=== PATIENT | male | born 1955 | race Caucasian/White ===

== ENCOUNTER 2020-03-24 08:43 | Outpatient (REF) | payer OTHER, SELFPAY ==
--- NOTE | 2020-03-24 | US_ITS ---
EXAMINATION: US RETROPERITONEAL LIMITED (RENAL ONLY) CLINICAL INFORMATION: Renal stones. COMPARISON: Renal ultrasound 08/22/2019 and 02/12/2019. TECHNIQUE: Real-time imaging of the kidneys. FINDINGS: RIGHT KIDNEY: 10.9 x 6.0 x 6.4 cm (SAG x AP x TRV). The kidney is normal in size, contour, and echogenicity. Renal cortical thickness is normal. No hydronephrosis. There are 3 anechoic cysts in the midpole measuring 0.8 x 0.6 x 0.6 cm, 1.6 x 1.5 x 1.5 cm and 0.3 x 0.2 cm. LEFT KIDNEY: 11.4 x 6.2 x 6.0 cm (SAG x AP x TRV). The kidney is normal in size, contour, and echogenicity. Renal cortical thickness is normal. No calculi or focal parenchymal lesions. No hydronephrosis. US/US renal BI IMPRESSION: Multiple right mid pole renal cysts. There are no echogenic stones or hydronephrosis in either kidney.
== END 2020-03-24 08:44 | disposition home or self-care (01) ==
LOC: HO.US 08:43
PROVIDERS: PCP Internal Medicine; Visit Provider Urology
DX: N20.0 Calculus of kidney (principal)
CPT/HCPCS: 76775

== ENCOUNTER → 2020-06-11 08:38 | Outpatient (BNVA) | payer OTHER, SELFPAY | PROVIDERS: PCP Internal Medicine; Visit Provider Urology ==

== ENCOUNTER 2021-06-04 09:55 | Outpatient (REF) | payer OTHER, SELFPAY ==
--- NOTE | ~2021-06-04 | US_ITS ---
EXAMINATION: US RETROPERITONEAL LIMITED (RENAL ONLY) CLINICAL INFORMATION: Calculus of kidney. COMPARISON: Renal ultrasound 03/24/2020 and 08/22/2019. CT abdomen and pelvis 02/01/2018. TECHNIQUE: Real-time imaging of the kidneys. FINDINGS: RIGHT KIDNEY: 11.2 x 6.0 x 4.7 cm (SAG x AP x TRV). The kidney is normal in size, contour, and echogenicity. Renal cortical thickness is normal. There are 2 cysts measuring 1.7 x 1.5 x 1.4 cm and 0.8 cm in the in the mid to lower pole. No renal calculi or hydronephrosis. LEFT KIDNEY: 11.6 x 5.6 x 5.7 cm (SAG x AP x TRV). The kidney is normal in size, contour, and echogenicity. Renal cortical thickness is normal. There are 3 stones measuring 5 x 6 mm and 5 x 4 mm in the lower pole and 4 mm in the mid to lower pole. No focal parenchymal lesions or hydronephrosis. US/US renal BI IMPRESSION: Left renal stones. Right renal cysts.
== END 2021-06-04 09:56 | disposition home or self-care (01) ==
LOC: HO.US 09:55
PROVIDERS: PCP Internal Medicine; Visit Provider Urology
DX: N20.0 Calculus of kidney (principal); N28.1 Cyst of kidney, acquired
CPT/HCPCS: 76775

== ENCOUNTER → 2021-08-07 12:38 | Outpatient (BNVA) | payer OTHER, SELFPAY | PROVIDERS: PCP Internal Medicine; Visit Provider Urology | DX: Z13.89 Encounter for screening for other disorder (principal) ==

== ENCOUNTER 2021-11-16 10:44 | Day surgery (SDC) | payer OTHER, SELFPAY ==
[2021-11-10 13:10] VITALS: BMI 28.6
[2021-11-16] VITALS (7 sets, daily range): BP systolic 132–144; BP diastolic 66–86; PULSE 54–62; RESP 12–20; TEMP 36.6–36.9; O2SAT 96–98; BMI 28.6
--- NOTE | ~2021-11-16 | FL_ITS ---
EXAMINATION: XR FLUOROSCOPY WITH IMAGES CLINICAL INFORMATION: Left renal stones. COMPARISON: Ultrasound renal, bilateral. TECHNIQUE: Fluoroscopy performed by Dr. Evelio Lucas Fluoroscopy time: 25.0 seconds Cumulative Dose: 7.68 mGy Images: 2 FINDINGS: Initial image reveals contrast opacifying the left kidney pelvis and the proximal ureter with irregular-appearing mid ureter. The subsequent image reveals a internal ureteral stent with its proximal end in the kidney pelvis. The distal end is not in the [id number]. FL/FL guidance in OR IMPRESSION: Fluoroscopy guidance provided to referrer for retrograde ureteroscopy.
[2021-11-16] MEDS: Lactated Ringers 1,000 ML 50 ML IVCONT (11:32)
[2021-11-16] MEDS: Acetaminophen 325 MG TABLET 650 MG PO (11:34)
--- NOTE | 2021-11-16 11:40 | HO.ANESPROP2 ---
[facility] Active Problems Active Problems: All Active Problems (Updated 11/10/21 @ 13:07 by Jennifer Chavarria RN) Renal cyst (Acute) Renal stones (Acute) Past Medical History Medical History (Updated 11/10/21 @ 13:07 by Jennifer Chavarria RN) Asthma BPH loc w urin obs/LUTS HTN (hypertension) Renal stones Squamous cell carcinoma Family History Family History Father No problems noted. Mother Cancer Family history of problems with anesthesia: No Surgical History Surgical History (Updated 11/10/21 @ 13:07 by Jennifer Chavarria RN) H/O colonoscopy History of eye surgery Hx of cystoscopy History of Problems with Anesthesia: No Social History Social History (Updated 11/10/21 @ 13:10 by Jennifer Chavarria RN) Are you a primary career and transition teacher to a significant other at home: No Do you presently have visiting nurse or other home services: No Patient Tobacco Use Status: Former Tobacco user Quit Date: as teenager Tobacco use type: Cigarette Use of substances other than those prescribed or required for medical reasons: No Have you been hit, kicked, punched, or otherwise hurt by someone within the past year? If so, by whom?: No Are you DNR?: No Advance Directives: No Advance Directives Information Provided: Yes (brochure mailed) Advance Directives on File: No Recently lost weight without trying: No Eating poorly because of decreased appetite: No Nutrition Risks: No Nutritional Risk Poor oral hygiene: No (admits to one broken tooth upper left side) Meds Allergies Allergy/AdvReac Type Severity Reaction Status Date / Time No Known Allergies Allergy Verified 11/03/21 14:10 Active Medications: Current Medications Lactated Ringer's (Lr) 1,000 mls @ 50 mls/hr IVCONT .Q20H ALEKSEY Last Admin: 11/16/21 11:32 Dose: 50 mls/hr Home Medications Medication Instructions Recorded Confirmed Last Taken Type cetirizine 10 mg tablet 10 mg PO DAILY 06/11/20 11/10/21 Unknown History ciclopirox 0.77 % topical cream 1 appl topical DAILY 06/11/20 11/10/21 Unknown History propranolol 60 mg capsule,24 60 mg PO DAILY 03/11/16/21 11/16/21 History hr,extended release cholecalciferol (vitamin D3) 25 25 mcg PO DAILY 11/10/21 11/10/21 Unknown History mcg (1,000 unit) capsule (Vitamin D3) Exam Exam Date and Time: November 16, 2021 1140 Height,Weight and Vital Signs: Height 5 ft 5 in Weight 78.018 kg Last Vital Signs Temp 98.4 F 11/16/21 10:57 Pulse 54 11/16/21 10:57 Resp 16 11/16/21 10:57 BP 133/66 11/16/21 10:57 Pulse Ox 98 11/16/21 10:57 O2 Del Method 11/16/21 10:57 Airway Mallampati Class: II (Missing couple teeth nothing loose) TM Dist: >3cm Neck ROM: Full Heart: rrr Lungs: cta Assessment and Plan Assessment Anesthesia Assessment: Anesthesia Plan Discussed and Chart Reviewed Final Anesthetic Review Family History of Problems with Anesthesia: No History of Problems with Anesthesia: No NPO: Yes ASA Class: II Final Preanesthetic Review: No Changes in Pt Med Stat, Meds/Allgs Chart Reviewed and Consent Obtained/Reviewed Patient Risk: Intermediate Procedure Risk: Intermediate Anesthetic Plan Anesthetic Plan: GA Disposition: Standard PACU
--- NOTE | 2021-11-16 13:22 | MHC.SHP ---
Pre-Procedural Eval Section A Date of Service: 11/16/21 The patient is an INPATIENT: No Changes since office visit: No Cold of Flu in the past 2 weeks, No New Medical Problems, No Changes in Medication and No Patient answered all questions The History & Physical has been completed within 30 days and I have reviewed it.: Yes Section B Chief Complaint: kidney stone Details of Present Illness: left renal stones Allergies: Allergies Allergy/AdvReac Type Severity Reaction Status Date / Time No Known Allergies Allergy Verified 11/03/21 14:10 Review of Systems Sugical H&P ROS: Negative: Constitution, Cardiovascular, Respiratory, Neurological, Psychiatric, Hem-Onc, Allergic/Immunologic, Gastrointestinal, Genitourinary, Musculoskeletal, Integumentary, Endocrine and Eyes/Ears/Nose/Throat Exam Surgical H&P Exam: Normal: HEENT, Normal: Heart, Normal: Lungs, Normal: Extremities, Normal: Abdomen, Normal: Skin and Normal: Neurological Plan Diagnosis/Plan: Unchanged (left retograde, felxible ureteroscopy, laser lithotripsy, stent) I have reviewed the history and physical and performed a pertinent physical examination on my patient. No changes have occurred unless specified.
--- NOTE | 2021-11-16 13:47 | P.OP_ITS ---
Operative Note Operative Note Date of Service: 11/16/21 Narrative: PreOperative Diagnosis: left renal stones Post Operative Diagnosis: evidence of prior stone passage Procedure: - cystoscopy, left retrograde - left dilatation of ureteric orifice under fluoroscopy - left ureteroscopy - left stent placement Surgeon: Dr Evelio Lucas Anesthesia: General Indications for procedure: multiple 4 mm stones left kidney with symptoms on imaging Procedure: After informed consent was verified patient was brought to the operating placed in supine position. Anesthesia was administered per protocol. Patient was placed in modified dorsal lithotomy position and prepped and draped in a sterile fashion. Safety pause time-out and side of surgery confirmed. Antibiotics confirmed. 22 Uzbek cystoscope was inserted per urethra. Bladder was normal in its entirety. Both ureteric orifices were in normal position. The left ureteric orifice was cannulated and a retrograde examination was performed. no filling defects seen within ureter or clearly visible within the renal pelvis . A Sensor guidewire was placed up to the level of the renal pelvis under fluoroscopy. The rigid cystoscope was removed and the inner cannula of ureteric access sheath was used under fluoroscopy to dilate the ureteric orifice. The ureteric access sheath was placed and the inner cannula with access wire removed. The digital flexible ureteral scope was placed. the left renal pelvis and associated calyces were examined in detail. There was evidence of stone passage from multiple different calices. Small embed stone in the lower pole calyx. A decision was made not to use any lasering. As we examined the upper part of the ureter there was some splitting secondary to the dilatation. Decision was made to place stent. A 6 Uzbek by 22 cm double-J stent was placed into the renal pelvis and bladder under a combination of fluoroscopy and direct visualization. The bladder was emptied. The patient tolerated the procedure well and was extubated in the operating room, and transferred in stable condition to the [facility] area. Pathology: none Drains: as above
[2021-11-16] MEDS: Phenazopyridine HCL 100 MG TABLET PO (14:17)
== END 2021-11-16 15:34 | disposition home or self-care (01) ==
PROVIDERS: PCP Internal Medicine; Visit Provider Urology
PROC: (CPT 52351; principal; 2021-11-16 12:30)
DX: N20.0 Calculus of kidney (principal); Z87.442 Personal history of urinary calculi; J30.2 Other seasonal allergic rhinitis; N40.0 Benign prostatic hyperplasia without lower urinary tract symptoms; C80.1 Malignant (primary) neoplasm, unspecified; Z79.899 Other long term (current) drug therapy; Z87.891 Personal history of nicotine dependence; Z98.890 Other specified postprocedural states
CPT/HCPCS: 52351; 52332; C1758; C1769; C1894; C2617; J1100; J1956; J2250; J2405; J3010; Q9965

== ENCOUNTER → 2021-11-24 13:01 | Outpatient (BNVA) | payer OTHER, SELFPAY | PROVIDERS: Visit Provider Urology | DX: N20.0 Calculus of kidney (principal) | CPT/HCPCS: 52310 ==

== ENCOUNTER 2022-05-05 08:55 | Outpatient (REF) | payer OTHER, MEDICARE, SELFPAY ==
--- NOTE | ~2022-05-05 | US_ITS ---
EXAMINATION: US RETROPERITONEAL LIMITED (RENAL ONLY) CLINICAL INFORMATION: Calculus of kidney. COMPARISON: Ultrasound retroperitoneal limited (renal only) 06/04/2021 and 03/24/2020. CT abdomen and pelvis without contrast 02/01/2018. TECHNIQUE: Real-time imaging of the kidneys. FINDINGS: RIGHT KIDNEY: 10.9 x 6.3 x 5.5 cm (SAG x AP x TRV). The kidney is normal in size, contour, and echogenicity. Renal cortical thickness is normal. No renal calculi or hydronephrosis. Two midpole benign Bosniak class I simple cysts are present measuring 1.7 and 0.9 cm. No solid renal masses. LEFT KIDNEY: 11.3 x 6.3 x 5.1 cm (SAG x AP x TRV). The kidney is normal in size, contour, and echogenicity. Renal cortical thickness is normal. A single tiny lower pole echogenic focus present which may represent a small residual calculus. The 3 stones seen previously on the 08/04/2021 study measuring 4 to 6 mm in size are not present. No focal parenchymal lesions or hydronephrosis. US/US renal BI IMPRESSION: 1. Right-sided benign Bosniak class I renal cysts need no further imaging or follow-up. 2. Tiny echogenic focus lower pole left kidney which may represent a small nonobstructing calculus.
== END 2022-05-05 08:56 | disposition home or self-care (01) ==
LOC: HO.US 08:55
PROVIDERS: PCP Internal Medicine; Visit Provider Urology
DX: N20.0 Calculus of kidney (principal)
CPT/HCPCS: 76775

== ENCOUNTER → 2022-06-18 09:32 | Outpatient (BNVA) | payer OTHER, MEDICARE, SELFPAY | PROVIDERS: PCP Internal Medicine; Visit Provider Urology | DX: Z13.89 Encounter for screening for other disorder (principal) ==

== ENCOUNTER 2023-06-08 13:00 | Outpatient (REF) | payer OTHER, SELFPAY ==
--- NOTE | ~2023-06-08 | US_ITS ---
EXAMINATION: US RETROPERITONEAL LIMITED (RENAL ONLY) CLINICAL INFORMATION: Calculus of kidney. COMPARISON: Renal ultrasound 05/05/2022 and 06/04/2021. CT abdomen and pelvis 02/01/2018. TECHNIQUE: Real-time imaging of the kidneys. FINDINGS: RIGHT KIDNEY: 10.1 x 5.6 x 4.0 cm (SAG x AP x TRV). The kidney is normal in size, contour, and echogenicity. Renal cortical thickness is normal. No renal calculi or hydronephrosis. A few small simple appearing cysts of the right kidney are noted portion of follow-up imaging is usually warranted, largest measuring 1.4 cm. LEFT KIDNEY: 11.2 x 5.7 x 5.1 cm (SAG x AP x TRV). The kidney is normal in size, contour, and echogenicity. Renal cortical thickness is normal. 3 mm nonobstructing lower pole calculus. No hydronephrosis. US/US renal BI IMPRESSION: 3 mm nonobstructing left renal calculus. No right-sided renal calculi. No hydronephrosis of either kidney.
== END 2023-06-08 13:01 | disposition home or self-care (01) ==
LOC: HO.US 13:00
PROVIDERS: PCP Internal Medicine; Visit Provider Urology
DX: N20.0 Calculus of kidney (principal)
CPT/HCPCS: 76775

== ENCOUNTER 2023-06-21 10:50 | Outpatient (AMB) | payer OTHER, SELFPAY ==
--- NOTE | 2023-06-21 10:53 | MHC.OFFVIS ---
Intake Intake Visit Reasons: 1Y US(Set) Intake Note: Patient is Present for Follow Up Urology Medication:Vitamin B6 Antibiotic Allergies:None Blood Thinners:None Pharmacy: [facility] Allergies No Known Allergies Allergy (Verified 06/21/23 10:55) HPI HPI Comments History of Present Illness Details George is a very pleasant male. He is a patient of . He is seen for the following urologic conditions - nephrolithiasis Discussed ultrasound results Question of small stone Will stop allopurinol Continue vitamin B6 50 mg Continues on nicotinamide to reduce skin cancer risk PSA 09/07 0.4 Nephrolithiasis Discussed imaging results No stones currently Current therapy allopurinol in vitamin B6 Prior procedures - 7 mm 2015 intervention - 11/09 left ureteroscopy - moth-eaten stone recurrent Imaging - 10/07 - renal ultrasound. Question of 3 mm right stone, 2 mm left stone. - 05/11 RENAL ULTRASOUND. Right-sided renal cyst. - 08/09 renal ultrasound right-sided cyst 2.4 cm, 3 x 5 mm left-sided stones - 05/13 renal ultrasound right-sided renal cyst, no evidence of stones - 07/12 renal ultrasound right-sided cyst stable, possible 2 mm left stone Plan therapy. Continue vitamin B6 and allopurinol PFSH Medical History Asthma Squamous cell carcinoma HTN (hypertension) BPH loc w urin obs/LUTS Renal stones Surgical History H/O colonoscopy Hx of cystoscopy History of eye surgery Family History Father No problems noted. Mother Cancer Social History Are you a primary healthcare economics consultant to a significant other at home: No Do you presently have visiting nurse or other home services: No Patient Tobacco Use Status: Former Tobacco user Quit Date: as teenager Tobacco use type: Cigarette Review of Systems Const Denies chills and Denies fever(s) Card Reports no additional complaints and Denies syncope Resp Denies cough GI Denies abdominal pain and Denies heartburn Reports as per HPI and Denies change in libido Neuro Denies syncope Psych Denies change in libido Endo Denies change in libido Physical Exam Const General: cooperative, healthy appearing, comfortable and no acute distress Orientation/consciousness: patient oriented x3 HEENT Face and sinus: Yes normal facial exam Mouth: moist mucous membranes Neck Neck: Yes normal visual inspection, Yes full ROM and Yes trachea midline Chest Chest palpation & inspection: normal inspection of the chest Resp Effort & Inspection: normal respiratory effort, able to speak in complete sentences and no respiratory distress GI Inspection: Yes normal to inspection Back/Spine/Pelvis Cervical Spine: normal cervical lordosis Thoracic/Lumbar Spine: thoracic and lumbar spine normal to inspection Skin General skin exam: no rashes or lesions noted Neuro General: patient oriented x3, gait normal, tone normal and moves all extremities Extrem General: Yes normal to inspection and Yes capillary refill normal Assessment & Plan Assessment & Plan (1) Renal stones: Code(s): N20.0 - Calculus of kidney Plan 12 month follow-up renal ultrasound Orders: Orders US renal BI 12 Months N20.0 - Calculus of kidney Medications: Discontinued allopurinol Discontinued Reason: Patient Completed Course 100 mg PO DAILY 90 days 90 tabs 3RF N20.0 - Calculus of kidney Patient Instructions: Imaging studies, laboratory and physical exam results were discussed and reviewed in detail. No major barriers to patient understanding were identified. An opportunity to ask questions regarding the treatment plan was provided. All questions were answered. The patient expressed understanding and agreement with the above treatment plan. The patient is aware they should contact our office by phone for worsening of their current condition or the appearance of new urologic symptoms. Compliance is encouraged with any medications and followup testing that is ordered. It is a privilege to participate in the urologic care of your patient. If you have any questions or concerns regarding treatment for the above conditions, or other urologic issues, please do not hesitate to contact me. The office telephone contact is [phone]. This note is constructed using voice recognition software. While every effort has been made to ensure accuracy zipper setter errors may have been included. Yours sincerely, Dr Evelio Lucas MD, [facility] - Urology Providers of Expert, Compassionate Care for the Genitourinary System Coding Level of Care Code Est Pt Level 4 (78977) Diagnoses Renal stones N20.0
== END 2023-06-21 11:12 | disposition home or self-care (01) ==
PROVIDERS: PCP Internal Medicine; Visit Provider Urology
DX: N20.0 Calculus of kidney (principal)
CPT/HCPCS: 99214

== ENCOUNTER → 2023-06-21 10:50 | Outpatient (BNVA) | payer MEDICARE, SELFPAY | PROVIDERS: Visit Provider Urology ==

== ENCOUNTER 2024-06-08 08:01 | Outpatient (REF) | payer OTHER, MEDICARE, SELFPAY ==
--- NOTE | ~2024-06-08 | US_ITS ---
EXAMINATION: US KIDNEY BILATERAL HISTORY: N20.0 - Calculus of kidney TECHNIQUE: Real-time grayscale ultrasound imaging of the kidneys was performed and images were reviewed. COMPARISON: Comparison is made with the prior examination dated 06/08/2023. FINDINGS: Right kidney: The right kidney measures 10.5 x 5.7 x 5.6 cm. Renal parenchymal echotexture and thickness are normal. There is a 1.5 cm cyst in the interpolar region and a 10 mm cyst at the lower pole. There is no hydronephrosis or renal calculi. Left Kidney: The left kidney measures 11.1 x 6.1 x 4.8 cm. Renal parenchymal echotexture and thickness are normal. There are no masses. There is no hydronephrosis or renal calculi. US/US renal BI IMPRESSION: Right renal cysts as described. Otherwise unremarkable renal ultrasound. Electronically signed by: Souleymane Valladares MD 06/08/2024 08:56 AM EDT
--- OUTSIDE RECORDS SUMMARY | 2024-06-08 08:03 | XMS_ITS | Clinical Summary ---
Author Organization [employer] Address [address] [facility] [address] [place] [address] Care Team Providers Care Hackler Doll Wigs Name Role Phone Mariana Morgan MD Primary Care Provider Allergies No known active allergies Medications cetirizine (ZyrTEC) 10 MG tablet TAKE ONE TABLET DAILY 30 tablet 5 3 Active cetirizine (ZyrTEC) 10 MG tablet TAKE ONE TABLET DAILY 3 Active propranolol LA (Inderal LA) 60 MG 24 hr capsuleIndication s:Primary hypertension Take 1 capsule (60 mg) by mouth in the morning. Do not crush, chew, or split. 90 capsule 3 3 Active propranolol LA (Inderal LA) 60 MG 24 hr capsuleIndication s:Hypertension, unspecified type Take 1 capsule (60 mg) by mouth Once per day. 90 capsule 1 4 Active Active Problems Problem Noted Date Diagnosed Date Hypertension 03/17/2024 Encounters Date Type Department Care Team Description 03/17/2024 9:00 AM EST Office Visit [facility] [address] [place] [address] NameNavneet MD Hypertension, unspecified type (Primary Dx) 03/17/2024 Travel 03/12/2024 Refill [facility] [address] [place] [address] Mariana Morgan MD Primary hypertension from Last 3 Months Social History Tobacco Use Types Packs/Day Years Used Date Smoking Tobacco: Never Tobacco Cessation:Counseling Given: Not Answered Alcohol Use Standard Drinks/Week Comments Yes 2 (1 standard drink = 0.6 oz pur e alcohol) Sex and Gender Information Value Date Recorded Sex Assigned at Male 01/18/2022 10:33 AM EDT Legal Sex Male 10:33 AM EDT Gender Identity Male 01/18/2022 10:33 AM EDT Sexual Orientation Straight 01/18/2022 10 :33 AM EDT Last Filed Vital Signs Vital Sign Reading Time Taken Comments Blood Pressure 120/72 03/17/2024 9:09 AM EST Pulse 72 03/17/2024 9:09 AM EST Temperature 36.3 ??C (97.4 ??F) 03/17/2024 9:09 AM ES T Respiratory Rate 16 03/17/2024 9:09 AM EST Oxygen Saturation 99% 03/17/2024 9:09 AM EST Inhaled Oxygen Concentration - - Weight 78.3 kg (172 lb 9.6 oz) 03/17/2024 9:09 A M EST Height 169 cm (5' 6.54 ) 03/17/2024 9:09 AM EST Body Mass Index 27.41 03/17/2024 9:09 AM EST Plan of Treatment Health Maintenance Due Date Last Done Comments CT Colonography 1956 Colonoscopy 1956 Colorectal Cancer Screening 1956 Depression Screening 1956 FIT DNA/Cologuard 1956 FIT 1956 FOBT 1956 Lipid Panel 1956 SDOH Screening 1956 Sigmoidoscopy 1956 Alcohol/Substance Use Screening 1968 Hepatitis C Screening 1974 Pneumococcal Vaccine: 50+ Years (1 of 1 - PCV) 2006 Zoster Vaccines (1 of 2) 2006 DTaP/Tdap/Td Vaccines (2 - Td or Tdap) 10/04/2017 10/05/2007 COVID-19 Vaccine ( season) 2023 09/04/2021, 03/06/2021, 06/25/2020, Additional history exists Influenza Vaccine (#1) 2023 Tobacco Screening 03/17/2025 03/17/2024 RSV Patients and Patients Aged 60 years or older (1 - 1-dose 75+ series) 2031 HIB Vaccines Aged Out No longer eligi ble based on patient's age to complete this topic HPV Vaccines Aged Out No longer eligi ble based on patient's age to complete this topic Hepatitis A Vaccines Aged Out No long er eligible based on patient's age to complete this topic Hepatitis B Vaccines Aged Out No long er eligible based on patient's age to complete this topic IPV Vaccines Aged Out No longer eligi ble based on patient's age to complete this topic Meningococcal Vaccine Aged Out No daly lorraine eligible based on patient's age to complete this topic RSV under 20 months Aged Out No longe r eligible based on patient's age to complete this topic Rotavirus Vaccines Aged Out No longer eligible based on patient's age to complete this topic [facility] [id number] [employer] * Guarantor: George White Account Type Relation to Patient Date of Phone Billing Address Personal/Family Self [facility] # [id number] * Guarantor: George White Account Type Relation to Patient Date of Phone Billing Address Personal/Family Self [place] [place] [id number] * Guarantor: George White Account Type Relation to Patient Date of Phone Billing Address Personal/Family Self [facility] [place] # 1 NA[address] [id number] Care Teams Hackler Doll Wigs Relationship Specialty Start Date End Date Mariana Morgan MD [address] [place] [address] NAINA Michele PCP - General Internal Medicine 03/15/24
--- OUTSIDE RECORDS SUMMARY | 2024-06-08 08:03 | XMS_ITS | Encounter Summary ---
Author Organization [employer] Address [address] [facility] [address] [address] Care Team Providers Care Grocery Specialist Name Role Phone Mariana Morgan MD Primary Care Provider [phone] Mariana Morgan MD Primary Care Provider [phone] Encounter Details Date Type Department Care Team (Late st Contact Info) Description 11/24/2022 Orders Only [facility] [address] [facility] [place], [place] [phone] Love Vivas LPN Social History Tobacco Use Types Packs/Day Years Used Date Smoking Tobacco: Never Assessed Sex and Gender Information Value Date Recorded Sex Assigned at Male 01/18/2022 10:33 AM EDT Legal Sex Male 10:33 AM EDT Gender Identity Male 01/18/2022 10:33 AM EDT Sexual Orientation Straight 01/18/2022 10 :33 AM EDT documented as of this encounter Plan of Treatment Not on file documented as of this encounter Visit Diagnoses Not on filedocumented in this encounter Care Teams Grocery Specialist Relationship Specialty Start Date End Date Mariana Morgan MD [address] [place] [address] PCP - General Internal Medicine 08/08/17 04/10/23 Mariana Morgan MD [address] [place] [address] PCP - General Internal Medicine 03/15/24 documented as of this encounter
--- OUTSIDE RECORDS SUMMARY | 2024-06-08 08:03 | XMS_ITS | Encounter Summary ---
Author Organization [employer] Address [address] [place] [address] [address] [place] [address] Care Team Providers Care Transformer Assembler Name Role Phone Mariana Morgan MD Primary Care Provider Reason for Visit * Reason Comments Med Refill Encounter Details Date Type Department Care Team ([facility] st Contact Info) Description 11/28/2023 Refill [facility] [address] [place] [address] Mariana Morgan MD [address] [place] [address] Social History Tobacco Use Types Packs/Day Years [...] on filedocumented in this encounter Care Teams Transformer Assembler Relationship Specialty Start Date End Date Mariana Morgan MD [address] [place] [address] PCP - General Internal Medicine 03/15/24 documented as of this encounter
--- OUTSIDE RECORDS SUMMARY | 2024-06-08 08:03 | XMS_ITS | Encounter Summary ---
Author Organization [employer] [facility] Address [address] [facility] [address], [place] [address] Care Team Providers Care Industrial Maintenance Electrician Name Role Phone Mariana Morgan MD Primary Care Provider [phone] Mariana Morgan MD Primary Care Provider [phone] Reason for Visit * Reason Comments Med Refill Encounter Details Date Type Department Care Team ([facility] st Contact Info) Description 09/20/2022 Refill [facility] [address] [place], [place] [phone] Whitney Quintero MD [address] [place], [place] [phone] Primary hypertension Social History Tobacco Use Types Packs/Day Years [...] documented as of this encounter Visit Diagnoses Diagnosis Primary hypertension Unspecified essential hypertension documented in this encounter Care Teams Industrial Maintenance Electrician Relationship Specialty Start Date End Date Mariana Morgan MD [address] [place] [address] PCP - General Internal Medicine 08/08/17 04/10/23 Mariana Morgan MD [address], [place] [phone] PCP - General Internal Medicine 03/15/24 documented as of this encounter
== END 2024-06-08 08:02 | disposition home or self-care (01) ==
LOC: HO.US 08:01
PROVIDERS: PCP Internal Medicine; Visit Provider Urology
DX: N20.0 Calculus of kidney (principal)
CPT/HCPCS: 76775

== ENCOUNTER → 2024-06-08 08:03 | Outpatient (BNV) | payer OTHER, MEDICARE, SELFPAY | PROVIDERS: PCP Internal Medicine; Visit Provider Radiology Diagnostic Radiology | DX: N20.0 Calculus of kidney (principal); N28.1 Cyst of kidney, acquired | CPT/HCPCS: 76775 ==

== ENCOUNTER 2024-06-21 08:36 | Outpatient (AMB) | payer OTHER, SELFPAY ==
--- NOTE | 2024-06-21 08:39 | MHC.OFFVIS ---
Intake Visit Reasons: 1y/US Intake Note: Patient is Present for 1Y Follow Up/US Urology Medication:Vitamin B6 Antibiotic Allergies:None Blood Thinners:None Pocketed Spring Machine Operator Required: No Allergies No Known Allergies Allergy (Verified 06/21/24 08:39) HPI Comments Details: George is a very pleasant male. He is a patient of . He is seen for the following urologic conditions - nephrolithiasis No stone seen on ultrasound Continue vitamin B6 50 mg Continues on nicotinamide to reduce skin cancer risk PSA 09/07 0.4 Follow with PCP Nephrolithiasis Discussed imaging results No stones currently Current therapy allopurinol in vitamin B6 Prior procedures - 7 mm 2015 intervention - 11/09 left ureteroscopy - moth-eaten stone recurrent Imaging - 10/07 - renal ultrasound. Question of 3 mm right stone, 2 mm left stone. - 05/11 RENAL ULTRASOUND. Right-sided renal cyst. - 08/09 renal ultrasound right-sided cyst 2.4 cm, 3 x 5 mm left-sided stones - 05/13 renal ultrasound right-sided renal cyst, no evidence of stones - 07/12 renal ultrasound right-sided cyst stable, possible 2 mm left stone - 07/13 renal ultrasound no stone seen Plan therapy. Continue vitamin B6 and allopurinol PFSH Medical History Asthma Squamous cell carcinoma HTN (hypertension) BPH loc w urin obs/LUTS Renal stones Surgical History H/O colonoscopy Hx of cystoscopy History of eye surgery Family History Father No problems noted. Mother Cancer Social History Are you a primary aged or disabled care worker to a significant other at home: No Do you presently have visiting nurse or other home services: No Patient Tobacco Use Status: Former Tobacco user Tobacco use type: Cigarette Review of Systems Const Denies chills and Denies fever(s) Card Reports no additional complaints and Denies syncope Resp Denies cough GI Denies abdominal pain and Denies heartburn Reports as per HPI and Denies change in libido Neuro Denies syncope Psych Denies change in libido Endo Denies change in libido Physical Exam Const General: cooperative, healthy appearing, comfortable and no acute distress Orientation/consciousness: patient oriented x3 HEENT Face and sinus: Yes normal facial exam Mouth: moist mucous membranes Neck Neck: Yes normal visual inspection, Yes full ROM and Yes trachea midline Chest Chest palpation & inspection: normal inspection of the chest Resp Effort & Inspection: normal respiratory effort, able to speak in complete sentences and no respiratory distress GI Inspection: Yes normal to inspection Back/Spine/Pelvis Cervical Spine: normal cervical lordosis Thoracic/Lumbar Spine: thoracic and lumbar spine normal to inspection Skin General skin exam: no rashes or lesions noted Neuro General: patient oriented x3, gait normal, tone normal and moves all extremities Extrem General: Yes normal to inspection and Yes capillary refill normal Assessment & Plan Assessment & Plan (1) Renal stones: Code(s): N20.0 - Calculus of kidney Category: Medical Plan P.r.n. follow-up Patient Instructions: This note is constructed using voice recognition software. While every effort has been made to ensure accuracy smokehouse worker errors may have been included. Imaging studies, laboratory and physical exam results were discussed and reviewed in detail. No major barriers to patient understanding were identified. An opportunity to ask questions regarding the treatment plan was provided. All questions were answered. The patient expressed understanding and agreement with the above treatment plan. The patient is aware they should contact our office by phone for worsening of their current condition or the appearance of new urologic symptoms. Compliance is encouraged with any medications and followup testing that is ordered. It is a privilege to participate in the urologic care of your patient. If you have any questions or concerns regarding treatment for the above conditions, or other urologic issues, please do not hesitate to contact me. The office telephone contact is [phone]. Sincerely, Dr Evelio Lucas MD, [facility] - Urology Compassionate Specialist Care for the Genitourinary System Coding Level of Care Code Est Pt Level 4 (69946) Diagnoses Renal stones N20.0
--- OUTSIDE RECORDS SUMMARY | 2024-06-21 08:46 | XMS_ITS | Encounter Summary ---
Author Organization [employer] Address [address] [facility] [address] [place] [address] Care Team Providers Care Ship'S Carpenter Name Role Phone Mariana Morgan MD Primary Care Provider [phone] Mariana Morgan MD Primary Care Provider [phone] Encounter Details Date Type Department Care Team (Late st Contact Info) Description 11/24/2022 Orders Only [facility] MED & PEDS [address] [facility], [place] [phone] Love Vivas LPN Social History Tobacco Use [...] on filedocumented in this encounter Care Teams Ship'S Carpenter Relationship Specialty Start Date End Date Mariana Morgan MD [address] [facility] [place] [address] PCP - General Internal Medicine 08/08/17 04/10/23 Mariana Morgan MD [address] [place] [address] PCP - General Internal Medicine 03/15/24 documented as of this encounter
--- OUTSIDE RECORDS SUMMARY | 2024-06-21 08:46 | XMS_ITS | Encounter Summary ---
Author Organization [employer] Address [address] [place] [address] [address] [place] [address] Care Team Providers Care Grocery Store Courtesy Clerk Name Role Phone Mariana Morgan MD Primary Care Provider Reason for Visit * Reason Comments Med Refill Encounter Details Date Type Department Care Team ([facility] st Contact Info) Description 11/28/2023 Refill [facility] CHC MED & PEDS [address] [place] [address] Mariana Morgan MD [address] [place] [address] Social History Tobacco Use Types Packs/Day Years [...] filedocumented in this encounter Care Teams Grocery Store Courtesy Clerk Relationship Specialty Start Date End Date Mariana Morgan MD [address] [place] [address] PCP - General Internal Medicine 03/15/24 documented as of this encounter
--- OUTSIDE RECORDS SUMMARY | 2024-06-21 08:46 | XMS_ITS | Clinical Summary ---
Author Organization [employer] Address [address] [facility] [address] [place] [address] Care Team Providers Care Twister Operator Name Role Phone Mariana Morgan MD Primary [...] Encounters Date Type Department Care Team Description 06/08/2024 Orders Only [facility] External Provider, [facility] from Last 3 Months Social History Tobacco [...] on patient's age to complete this topic Procedures Procedure Name Priority Date/Time Associated Diagnosis Comments US RENAL BI Routine 06/08/2024 8:09 AM EDT from Last 3 Months Results * US RENAL BI (06/08/2024 8:09 AM EDT) Anatomical Region Laterality Modality Abdomen Ultrasound 06/08/2024 8:09 AM EDT Narrative 06/08/2024 8:59 AM EDT ? [facility] ?[address] ?[place] [address] ? Ultrasound Report ? Signed ? Patient: White,Samaritan ?MR#: M ?? [id number] ? : 1955 ?Acct:[id number] ? Age/Sex: 69 / M ?ADM Date: 06/08/24 ? Loc: HO.US ? Attending Dr: Evelio Lucas MD ? Ordering Physician: Evelio Lucas MD ?? Date of Service: 06/08/24 ?? Procedure(s): US renal BI ?? Accession Number(s): [id number] ? cc: Mariana Morgan MD; Evelio Lucas MD ? EXAMINATION: ??US KIDNEY BILATERAL ? HISTORY: N20.0 - Calculus of kidney ? TECHNIQUE: Real-time grayscale ultrasound imaging of the kidneys was ?? performed and images were reviewed. ? COMPARISON: Comparison is made with the prior examination dated ?? 06/08/2023. ? FINDINGS: ? Right kidney: ??The right kidney measures 10.5 x 5.7 x 5.6 cm. ??Renal ?? parenchymal echotexture and thickness are normal. ??There is a 1.5 cm ?? cyst in the interpolar region and a 10 mm cyst at the lower pole. ? There is no hydronephrosis or renal calculi. ? Left Kidney: ??The left kidney measures 11.1 x 6.1 x 4.8 cm. ??Renal ?? parenchymal echotexture and thickness are normal. ??There are no masses. ?? There is no hydronephrosis or renal calculi. ? US/US renal BI ?? IMPRESSION: ? Right renal cysts as described. Otherwise unremarkable renal ultrasound. ? Electronically signed by: ??Souleymane Valladares MD ??06/08/2024 08:56 AM EDT ?? RP ? Dictated By: ?Souleymane Valladares MD ? Signed By: ?<Electronically signed by Souleymane Valladares MD in OV> ?06/08/24 0856 ? DD/ 0809 ? TD/TT: 06/08/24 0829 ? Contact Representative: ? Procedure Note Donotireneter, Image - 06/08/2024 [place] [id number] Ultrasound Report Signed Patient: Sahara White#: M [id number] : 1955cct:[id number] Age/Sex: 69 / MADM Date: 06/08/24 Loc: HO.US Attending Dr: Evelio Lucas MD Ordering Physician: Evelio Lucas MD Date of Service: 06/08/24 Procedure(s): US renal BI Accession Number(s): [id number] cc: Mariana Morgan MD; Evelio Lucas MD EXAMINATION: US KIDNEY BILATERAL HISTORY: N20.0 - Calculus of kidney TECHNIQUE: Real-time grayscale ultrasound imaging of the kidneys was performed and images were reviewed. COMPARISON: Comparison is made with the prior examination dated 06/08/2023. FINDINGS: Right kidney: The right kidney measures 10.5 x 5.7 x 5.6 cm. Renal parenchymal echotexture and thickness are normal. There is a 1.5 cm cyst in the interpolar region and a 10 mm cyst at the lower pole. There is no hydronephrosis or renal calculi. Left Kidney: The left kidney measures 11.1 x 6.1 x 4.8 cm. Renal parenchymal echotexture and thickness are normal. There are no masses. There is no hydronephrosis or renal calculi. US/US renal BI IMPRESSION: Right renal cysts as described. Otherwise unremarkable renal ultrasound. Electronically signed by: Souleymane Valladares MD 06/08/2024 08:56 AM EDT RP Dictated By: Souleymane Valladares MD Signed By: <Electronically signed by Souleymane Valladares MD in OV> 06/08/24 0856 DD/ 0809 TD/TT: 06/08/24 0829 Contact Representative: us [facility] External Provider IMG US PROCEDURES Edited Result - Final from Last 3 Months [facility] [address] [place] [id number] [employer] * Guarantor: George White Account Type Relation to Patient Date of Phone Billing Address Personal/Family [facility] [address] [place] [id number] * Guarantor: George White Account Type Relation to Patient Date of Phone Billing Address Personal/Family Self [facility] [address] [place] [id number] * Guarantor: George White Account Type Relation to Patient Date of Phone Billing Address Personal[facility] [id number] Care Teams Twister Operator Relationship Specialty Start Date End Date Mariana Morgan MD [address] [place] [address] [place] PCP - General Internal Medicine 03/15/24
--- OUTSIDE RECORDS SUMMARY | 2024-06-21 08:46 | XMS_ITS | Encounter Summary ---
Author Organization [employer] [facility] Address [address] [facility] [address], [place] [address] Care Team Providers Care Informatics Physician Liaison Name Role Phone Mariana Morgan MD Primary Care Provider [phone]- [phone] Mariana Morgan MD Primary Care Provider [phone]- [phone] Reason for Visit * Reason Comments Med Refill Encounter Details Date Type Department Care Team ([facility] st Contact Info) Description 09/20/2022 Refill [facility] CHC MED & PEDS [address] [place], [place] [phone] Whitney Quintero MD [address] [place], [place] [phone] Primary hypertension Social History Tobacco Use Types [...] hypertension documented in this encounter Care Teams Informatics Physician Liaison Relationship Specialty Start Date End Date Mariana Morgan MD [address] [place] [address] PCP - General Internal Medicine 08/08/17 04/10/23 Mariana Morgan MD [address] [place], [place] [phone] PCP - General Internal Medicine 03/15/24 documented as of this encounter
== END 2024-06-21 09:22 | disposition home or self-care (01) ==
LOC: HO.HUSH 08:36
PROVIDERS: PCP Internal Medicine; Visit Provider Urology
DX: N20.0 Calculus of kidney (principal)
CPT/HCPCS: 99214

== ENCOUNTER 2024-09-14 14:36 | Outpatient (REF) | payer OTHER, SELFPAY ==
--- OUTSIDE RECORDS SUMMARY | 2024-09-14 14:57 | XMS_ITS | Encounter Summary ---
Author Organization [employer] [facility] Address [address] [place] [address] [address] [place] [address] Care Team Providers Care Behavioral Health Associate Name Role Phone Mariana Morgan MD Primary Care Provider [phone] Mariana Morgan MD Primary Care Provider [phone] Encounter Details Date Type Department Care Team (Late st Contact Info) Description 11/24/2022 Orders Only [facility] MED & PEDS [address] [place] [address] Love Vivas LPN Social History Tobacco Use Types Packs/Day Years Used Date Smoking Tobacco: Never Assessed Sex and Gender Information Value Date Recorded Sex Assigned at Male 01/18/2022 10:33 AM EDT Legal Sex Male 10:33 AM EDT Gender Identity Male 01/18/2022 10:33 AM EDT Sexual Orientation Straight 01/18/2022 10 :33 AM EDT documented as of this encounter Plan of Treatment Upcoming Encounters Date Type Department Care Team (Late st Contact Info) Description 09/28/2024 10:00 AM EDT Clinical Support [facility] MED & PEDS [address] [place] [address] 11/27/2024 4:00 PM EDT Office Visit [facility] MED & PEDS [address] [place] [address] Mariana Morgan MD [address] [place] [address] documented as of this encounter Visit Diagnoses Not on filedocumented in this encounter Care Teams Behavioral Health Associate Relationship Specialty Start Date End Date Mariana Morgan MD [address] [place] [address] PCP - General Internal Medicine 08/08/17 04/10/23 Mariana Morgan MD [address] [place] [address] [place] [id number] PCP - General Internal Medicine 03/15/24 documented as of this encounter
[2024-09-15 10:59] LABS: Adenovirus PCR Not Detected (Not Detect.); Bordetella parapertussis PCR Not Detected (Not Detect.); Bordetella pertussis PCR Not Detected (Not Detect.); Chlamydia pneumoniae PCR Not Detected (Not Detect.); Coronavirus 229E PCR Not Detected (Not Detect.); Coronavirus HKU1 PCR Not Detected (Not Detect.); Coronavirus NL63 PCR Not Detected (Not Detect.); Coronavirus OC43 PCR Not Detected (Not Detect.); Human metapneumovirus PCR Not Detected (Not Detect.); Influenza A PCR Not Detected (Not Detect.); Influenza B PCR Not Detected (Not Detect.); Mycoplasma pneumoniae PCR Not Detected (Not Detect.); Parainfluenza 1 PCR Not Detected (Not Detect.); Parainfluenza 2 PCR Not Detected (Not Detect.); Parainfluenza 3 PCR Not Detected (Not Detect.); Parainfluenza 4 PCR Not Detected (Not Detect.); RSV PCR Not Detected (Not Detect.); Rhino/Enterovirus PCR Not Detected (Not Detect.)
[2024-09-15 11:13] LABS: Influenza A H1 PCR Not Detected (Not Detect.); Influenza A H1-2009 PCR Not Detected (Not Detect.); Influenza A H3 PCR Not Detected (Not Detect.); SARS-CoV-2 PCR Not Detected (Not Detect.)
== END 2024-09-14 14:37 | disposition home or self-care (01) ==
LOC: HO.CHCLNP 14:36
PROVIDERS: Visit Provider Family Medicine
DX: J32.9 Chronic sinusitis, unspecified (principal); R06.2 Wheezing
CPT/HCPCS: 87070; 87633

== ENCOUNTER 2024-11-28 08:55 | Outpatient (REF) | payer OTHER, MEDICARE, SELFPAY ==
--- OUTSIDE RECORDS SUMMARY | 2024-11-27 16:00 | XMS_ITS | Encounter Summary ---
Author Organization [employer] Address [address] [facility] [address] [place] [address] Care Team Providers Care Dental Nurse Name Role Phone Mariana Morgan MD Primary Care Provider Encounter Details Date Type Department Care Team ([facility] st Contact Info) Description 11/27/2024 4:00 PM EDT Office Visit [facility] [address] [place] [address] Mariana Morgan MD [address], [place] [phone] Primary hypertension (Primary Dx); Rhinosinusitis Social History Tobacco Use Types Packs/Day Years Used Date Smoking Tobacco: Never Alcohol Use Standard Drinks/Week Comments Yes 2 (1 standard drink = 0.6 oz pur e alcohol) Alcohol Answer Date Recorded How often do you have a drink containing alcohol ? 1 11/27/2024 How many drinks containing a lcohol do you have on a typical day when you are drinking? 0 11/27/2024 How often do you have six or more drinks on one occasion? 0 11/27/2024 Depression Answer Date Recorded Patient Health Questionnaire-9 Score 2 11/27/2024 Patient Health Questionnaire-9 Score 2 11/27/2024 Last PHQ-9: Questionnaire Data Not on file 0 11/27/2024 Housing Stability Answer Date Recorded What is your housing situation today? I have hanna ramos 11/27/[address] you li ve. Do you have problems with any of the following? None of the above 11/27/2024 Food Insecurity Answer Date Recorded Within the past 12 months, y ou worried that your food would run out before you got money to buy more: Never True 11/27/2024 Within the past 12 months,th e food you bought just didn't last and you didn't have enough money to get more: Never True 11/2024 Transportation Answer Date Recorded In the past 12 months, has l ack of transportation kept you from medical appts, meetings, work or from getting things needed for daily living? No 11/27/2024 Utilities Answer Date Recorded In the past 12 months, has t he electric, gas, oil or water company threatened to shut off services in your home? No 11/27/2024 Depression Answer Date Recorded Patient Health Questionnaire-2 Score 0 11/27/2024 Internet Access Answer Date Recorded Internet Access Q1 Yes 11/27/2024 Internet Access Q2 Not on file 11/27/2024 Sex and Gender Information Value Date Recorded Sex Assigned at Male 01/18/2022 10:33 AM EDT Legal Sex Male 10:33 AM EDT Gender Identity Male 01/18/2022 10:33 AM EDT Sexual Orientation Straight 01/18/2022 10 :33 AM EDT documented as of this encounter Last Filed Vital Signs Vital Sign Reading Time Taken Comments Blood Pressure 124/68 11/27/2024 3:49 PM EDT Pulse 44 11/27/2024 3:49 PM EDT Temperature - - Respiratory Rate 20 11/27/2024 3:49 PM EDT Oxygen Saturation 96% 11/27/2024 3:49 PM EDT Inhaled Oxygen Concentration - - Weight 78 kg (172 lb) 11/27/2024 3:49 PM EDT Height 169 cm (5' 6.54 ) 11/27/2024 3:49 PM EDT Body Mass Index 27.31 11/27/2024 3:49 PM EDT documented in this encounter Functional Status * Over the past 2 weeks, how often have you been bothered by any of the following problems? Question Answer Date of Assessment Author Patient Health Questionnaire-2 Score 0 11/2024 4:29 PM EDT Kyleigh Mcneill MA * Little interest or pleasure in doing things Answer Date of Assessment Author Not at all 11/27/2024 4:29 PM EDT Prasad Mcneill MA * Feeling down, depressed, or hopeless Answer Date of Assessment Author Not at all 11/27/2024 4:29 PM EDT Prasad Mcneill MA * Trouble falling or staying asleep, or sleeping too much Answer Date of Assessment Author Not at all 11/27/2024 4:29 PM EDT Prasad Mcneill MA * Feeling tired or having little energy Answer Date of Assessment Author Several days 11/27/2024 4:29 PM EDT Prasad Mcneill MA * Poor appetite or overeating Answer Date of Assessment Author Not at all 11/27/2024 4:29 PM EDT Prasad Mcneill MA * Feeling bad about yourself - or that you are a failure or have let yourself or your family down Answer Date of Assessment Author Not at all 11/27/2024 4:29 PM EDT Prasad Mcneill MA * Trouble concentrating on things, such as reading the newspaper or watching television Answer Date of Assessment Author Not at all 11/27/2024 4:29 PM EDT Prasad Mcneill MA * Moving or speaking so slowly that other people could have noticed? Or the opposite - being so fidgety or restless that you have been moving around a lot more than usual. Answer Date of Assessment Author Several days 11/27/2024 4:29 PM EDT Prasad Mcneill MA * Thoughts that you would be better off or hurting yourself in some way Answer Date of Assessment Author Not at all 11/27/2024 4:29 PM Prasad Joy MA * Patient Health Questionnaire-9 Score Answer Date of Assessment Author 2 11/27/2024 4:29 PM EDPrasad Delgado MA * How difficult have these problems made it for you to do your work, take care of things at home, or get along with other people? Answer Date of Assessment Author Not difficult at all 11/27/2024 4:29 PM EDT Kyleigh Santos MA documented as of this encounter Progress Notes * Mariana Morgan MD - 11/27/2024 4:00 PM EDT SUBJECTIVE George White is a 69 y.o. male who presents for No chief complaint on file.. HPI Mr. Lanette White Was evaluated at ear nose and throat [facility] throat surgeon on October 17, 2024 with the impression of allergic rhinitis. Advised to use Flonase. Also with the impression of allergic asthma likely exacerbated by pet exposures and past asthma history. Advise a steroid and a long-acting bronchodilator. Impression as well of chronic sinusitis treated with doxycycline. Also noted to have deviated nasal septum, patient will be considered in the future for surgical intervention. Mr. George White Also had a nasal endoscopy done in the nasal septal deviation was confirmed no nasal polyp noted. Patient is especially here in the office to consider switching off propranolol and to substitute it for another antihypertensive medication prior to getting allergytesting performed and to consider immunotherapy. During the visit Mr George White Overall feels well since completing the course of doxycycline and on the current treatment prescribed. Problem List[1] Allergies[2] Medications Ordered Prior to Encounter[3] Review of Systems Constitutional: Negative for chills, diaphoresis and fatigue. HENT: Negative for congestion, facial swelling, mouth sores, postnasal drip, rhinorrhea, sinus pressure and sinus pain. Eyes: Negative for photophobia, pain and redness. Respiratory: Negative for cough, choking and shortness of breath. Cardiovascular: Negative for leg swelling. Gastrointestinal: Negative for abdominal pain and anal bleeding. Genitourinary: Negative for penile pain and penile swelling. Musculoskeletal: Negative for arthralgias. Psychiatric/Behavioral: Negative for behavioral problems and confusion. OBJECTIVE Vitals: 11/27/24 1549 BP: 124/68 BP Location: Left arm Patient Position: Sitting BP Cuff Size: Adult Pulse: (!) 44 Resp: 20 SpO2: 96% Weight: 172 lb (78 kg) Height: 5' 6.54 (1.69 m) Physical Exam Constitutional: General: He is not in acute distress. Appearance: Normal appearance. He is not ill-appearing, toxic-appearing or diaphoretic. HENT: Nose: Right Turbinates: Not enlarged. Left Turbinates: Not enlarged. Right Sinus: No frontal sinus tenderness. Left Sinus: No frontal sinus tenderness. Cardiovascular: Rate and Rhythm: Normal rate. Pulmonary: Effort: Pulmonary effort is normal. Neurological: General: No focal deficit present. Mental Status: He is alert. Assessment/Plan Assessment/Plan Diagnoses and all orders for this visit: Primary hypertension Comments: Propranolol to taper off DASH diet Start losartan 25 mg after propranolol is discontinued. Norvasc used in the past was not well-tolerated. Orders: - propranolol (Inderal) 20 MG tablet; 20 mg bid x 2 days, 20 mg daily x 2 days - losartan (Cozaar) 25 MG tablet; Take 1 tablet (25 mg) by mouth Once per day. Rhinosinusitis Comments: Follow-up with ENT as scheduled Propranolol will be tapered off. [1] Patient Active Problem List Diagnosis Hypertension Wheezing on exhalation Bilateral impacted cerumen Rhinosinusitis [2] No Known Allergies [3] Current Outpatient Medications on File Prior to Visit Medication Sig Dispense Refill albuterol 108 (90 Base) MCG/ACT inhaler Inhale 2 puffs every 4 (four) hours if needed for wheezing.18 g 0 Ketotifen Fumarate 0.035 % solution Administer 1 drop into affected eye(s) 2 times daily. 10 mL 0 loratadine (Claritin) 10 MG tablet Take 1 tablet (10 mg) by mouth Once per day. 30 tablet 0 propranolol LA (Inderal LA) 60 MG 24 hr capsule Take 1 capsule (60 mg) by mouth in the morning. Do not crush, chew, or split. 90 capsule 3 propranolol LA (Inderal LA) 60 MG 24 hr capsule TAKE 1 CAPSULE DAILY 90 capsule 1 pseudoephedrine (Sudafed) 60 MG tablet Take 1 tablet (60 mg) by mouth every 6 (six) hours if neededfor congestion for up to 10 days. 30 tablet 0 No current facility-administered medications on file prior to visit. documented in this encounter Plan of Treatment Upcoming Encounters Date Type Department Care Team (Late st Contact Info) Description 01/02/2025 2:45 PM EDT Office Visit [facility] [address] [place] [address] Mariana Morgan MD [address] [place] [address] documented as of this encounter Visit Diagnoses Diagnosis Primary hypertension- Primary Unspecified essential hypertension Rhinosinusitis documented in this encounter Additional Health Concerns Assessment Noted Time PHQ-9 Depression Total Score: 2 11/28/19 25 4:29 PM EDT documented as of this encounter Care Teams Dental Nurse Relationship Specialty Start Date End Date Mariana Morgan MD [address] [place] [id number] PCP - General Internal Medicine 03/15/24 documented as of this encounter
--- NOTE | 2024-11-28 | PFT_ITS ---
Indication: Wheezing Spirometry FEV1 to FVC 81%; FEV1 2.65 L; FVC 3.27 L. seems the trend response to bronchodilators noted Lung Volumes Total lung capacity 75% predicted; residual volume 71% predicted; expiratory reserve volume 25% predicted Diffusion Capacity DLCO 97% predicted Comparisons None Interpretation No obstructive ventilatory defects identified. Since is a trend response to bronchodilators noted. There is a restrictive ventilatory defect consistent with mild restrictive lung disease. This could be the result of an elevated BMI although parenchymal lung conditions can not be ruled out. Diffusing capacity is within normal limits. If asthma is in the differential, a methacholine challenge may be helpful in assessing for hyperreactive airways. Clinical correlation warranted. MTDD
[2024-11-28 09:53] VITALS: PULSE 58; O2SAT 98
--- OUTSIDE RECORDS SUMMARY | 2024-11-28 10:30 | XMS_ITS | Encounter Summary ---
Author Organization [employer] Address [address] [facility] [address] [place] [address] Care Team Providers Care Lead Cytogenetic Technologist Name Role Phone Mariana Morgan MD Primary Care Provider [phone] Encounter Details Date Type Department Care Team (Latest Contact Info) Description 11/27/2024 Travel Social History Tobacco Use Types Packs/Day Years [...] AM EDT documented as of this encounter Functional Status * Over the [...] 4:29 PM EDT Prasad Mcneill MA * Patient Health Questionnaire-9 Score Answer Date of Assessment Author 2 11/27/2024 4:29 PM EDT Prasad Mcneill MA * How difficult have these problems made it for you to do your work, take care of things at home, or get along with other people? Answer Date of Assessment Author Not difficult at all 11/27/2024 4:29 PM EDT Kyleigh Santos MA documented as of this encounter Plan of Treatment Upcoming Encounters Date Type Department Care Team (Late st Contact Info) Description 01/02/2025 2:45 PM EDT Office Visit [facility] [address] [place] [address] Mariana Morgan MD [address] [place] [address] documented as of this encounter Visit Diagnoses Not on filedocumented in this encounter Additional Health Concerns Assessment Noted Time PHQ-9 Depression Total Score: 2 11/28/19 25 4:29 PM EDT documented as of this encounter Care Teams Lead Cytogenetic Technologist Relationship Specialty Start Date End Date Mariana Morgan MD [address] [place] [address] PCP - General Internal Medicine 03/15/24 documented as of this encounter
--- OUTSIDE RECORDS SUMMARY | 2024-11-28 10:30 | XMS_ITS | Clinical Summary ---
Author Organization [employer] Address [address] [facility] [address] [place] [address] Care Team Providers Care Executive Team Leader Name Role Phone Mariana Morgan MD Primary Care Provider Allergies No known active allergies Medications propranolol LA (Inderal LA) 60 MG 24 hr capsuleIndication s:Primary hypertension Take 1 capsule (60 mg) by mouth in the morning. Do not crush, chew, or split. 90 capsule 3 3 Active albuterol 108 (90 Base) MCG/ACT inhalerIndication s:Wheezing on exhalation Inhale 2 puffs every 4 (four) hours if needed for wheezing. 18 g 5 09/15/19 26 Active pseudoephedrine (Sudafed) 60 MG tabletIndications :Rhinosinusitis Take 1 tablet (60 mg) by mouth every 6 (six) hours if needed for congestion for up to 10 days. 30 tablet 5 Active Ketotifen Fumarate 0.035 % solutionIndicatio ns:Rhinosinusitis Administer 1 drop into affected eye(s) 2 times daily. 10 mL 5 Active loratadine (Claritin) 10 MG tabletIndications :Rhinosinusitis Take 1 tablet (10 mg) by mouth Once per day. 30 tablet 5 Active propranolol LA (Inderal LA) 60 MG 24 hr capsuleIndication s:Hypertension, unspecified type TAKE 1 CAPSULE DAILY 90 capsule 1 5 Active propranolol (Inderal) 20 MG tabletIndications :Primary hypertension 20 mg bid x 2 days, 20 mg daily x 2 days 6 tablet 5 Active losartan (Cozaar) 25 MG tabletIndications :Primary hypertension Take 1 tablet (25 mg) by mouth Once per day. 30 tablet 11 5 11/28/19 26 Active Active Problems Problem Noted Date Diagnosed Date Wheezing on exhalation 09/14/2024 Bilateral impacted cerumen 09/14/2024 Rhinosinusitis 09/14/2024 Assessment & Plan (09/17/2024 7:51 AM EDT): Patient reports persistent symptoms of head congestion, right ear pain, excessive phlegm (especially in the morning), frequent nose blowing, and eye irritation for over a month. These symptoms, along with the constant throat clearing, are consistent with chronic rhinosinusitis. Previous treatments with Mucinex and apou-iwb-euxfpae Zyrtec have been ineffective. The patient's history of childhood asthma and allergies to dust and cats may contribute to the current condition. Plan: - Prescribe loratadine (antihistamine) - Prescribe decongestant - Schedule appointment for water lavage to remove earwax - Provide ear drops for earwax - Order respiratory panel to check for infectious causes - Refer to Dr. Morgan for follow-up on lung tests and medications Hypertension 03/17/2024 Encounters Date Type Department Care Team Description 11/27/2024 4:00 PM EDT Office Visit [facility] [address] [place] [address] Mariana Morgan MD Primary hypertension (Primary Dx); Rhinosinusitis 11/27/2024 Travel 11/26/2024 Telephone [facility] [address] [place] [address] Mariana Morgan MD Chart Prep 10/26/2024 Refill [facility] [address] [place], [place] [id number] Name, MD Navneet Hypertension, unspecified type 09/28/2024 10:00 AM EDT Clinical Support [facility] [address] [place] [address] Nicolette Sosa, SALINAS Bilateral impacted cerumen [H61.23] 09/27/2024 Travel 09/14/2024 9:15 AM EDT Office Visit [facility] [address] [place] [address] Whitney Quintero MD Rhinosinusitis (Primary Dx); Wheezing on exhalation; Bilateral impacted cerumen; Polyphagia 09/14/2024 Travel from Last 3 Months Immunizations Immunization Administration Dates Next Due Tdap 10/05/2007 Social History Tobacco Use Types Packs/Day Years [...] your housing situation today? I have hanna rachel 11/27/[address] you li [...] Pulse 44 11/27/2024 3:49 PM EDT Temperature 36.8 C (98.3 F) 09/14/2024 9:20 AM EDT Respiratory Rate 20 11/27/2024 3:49 PM EDT Oxygen Saturation 96% 11/27/2024 3:49 PM EDT Inhaled Oxygen Concentration - - Weight 78 kg (172 lb) 11/27/2024 3:49 PM EDT Height 169 cm (5' 6.54 ) 11/27/2024 3:49 PM EDT Body Mass Index 27.31 11/27/2024 3:49 PM EDT Plan of Treatment Upcoming Encounters Date Type Department Care Team (Late st Contact Info) Description 01/02/2025 2:45 PM EDT Office Visit [facility] [address] [place] [address] Mariana Morgan MD [address] [place] [address] Health Maintenance Due Date Last Done Comments CT Colonography 1956 Colonoscopy 1956 Colorectal Cancer Screening 1956 FIT DNA/Cologuard 1956 FIT 1956 FOBT 1956 Lipid Panel 1956 Sigmoidoscopy 1956 Hepatitis C Screening 1974 Pneumococcal Vaccine: 50+ Years (1 of 2 - PCV) 1975 Zoster Vaccines (1 of 2) 2006 RSV Patients and Patients Aged 60 years or older (1 - Risk 60-74 years 1-dose series) 2016 DTaP/Tdap/Td Vaccines (2 - Td or Tdap) 10/04/2017 10/05/2007 COVID-19 Vaccine ( season) 2024 09/04/2021, 03/06/2021, 06/25/2020, Additional history exists Influenza Vaccine (#1) 2024 Tobacco Screening 03/17/2025 03/17/2024 Alcohol/Substance Use Screening 11/27/2025 11/27/2024 Depression Screening 11/27/2025 11/27/2024, 11/28/19 SDOH Screening 11/27/2025 11/27/2024 HIB Vaccines Aged Out No longer eligi [...] patient's age to complete this topic Meningococcal B Vaccine Aged Out No l onger eligible based on patient's age to complete [...] Procedure Name Priority Date/Time Associated Diagnosis Comments POCT RAPID COVID ANTIGEN Routine 09/14/2024 10:14 AM EDT Rhinosinusitis POCT INFLUENZA B Routine 09/14/2024 10:1 3 AM EDT Rhinosinusitis POCT INFLUENZA A Routine 09/14/2024 10:1 3 AM EDT Rhinosinusitis POCT RAPID STREP A Routine 09/14/2024 10 :12 AM EDT Rhinosinusitis POCT GLUCOSE Routine 09/14/2024 10:11 AM EDT Polyphagia POCT GLYCATED HEMOGLOBIN, TOTAL Routine 09/14/2024 10:10 AM EDT Polyphagia RESPIRATORY VIRAL PANEL PCR Routine 09/14/2024 9:30 AM EDT Rhinosinusitis Wheezing on exhalation CULTURE, THROAT Routine 09/14/2024 9:30 AM EDT Rhinosinusitis from Last 3 Months Results * POCT Rapid Covid-19 BinaxNOW (09/14/2024 10:14 AM EDT) [facility] Rapid COVID Ag Negative QC Media Lot # [id number] Lot# Expiration Date 7,026 Blood 09/14/2024 10:1 4 AM EDT Whitney Quintero MD POINT OF CARE TEST ENTER/EDIT ORDERABLES Final Result * POCT Rapid Influenza B OSOM (09/14/2024 10:13 AM EDT) [facility] Rapid Influenza B Ag Negative Negative, Indeterminate QC Media Lot # [id number] Lot# Expiration Date ,025 Swab 09/14/2024 10:1 3 AM EDT Whitney Quintero MD POINT OF CARE TEST ENTER/EDIT ORDERABLES Final Result * POCT Rapid Influenza A OSOM (09/14/2024 10:13 AM EDT) [facility] Rapid Influenza A Ag Negative Negative, Indeterminate QC Media Lot # [id number] Lot# Expiration Date ,025 Swab Nasopharyngeal structure / Unknown 09/14/2024 10:13 AM EDT us Whitney Quintero MD POINT OF CARE TEST ENTER/EDIT ORDERABLES Final Result * POCT Rapid Strep A OSOM (09/14/2024 10:12 AM EDT) [facility] Rapid Strep A Screen Negative Negative, None Detected QC Media Lot # [id number] Lot# Expiration Date 302,025 Swab 09/14/2024 10:1 2 AM EDT Whitney Quintero MD POINT OF CARE TEST ENTER/EDIT ORDERABLES Final Result * POCT Glucose (09/14/2024 10:11 AM EDT) Pathologist [facility] Glucose Blood, POC 111 60 - 200 mg/dL QC Media Lot # [id number] Lot# Expiration Date ,933 Comment:random Blood Capillary blood specimen / Unknown 09/14/2024 10:11 AM EDT Whitney Quintero MD POINT OF CARE TEST ENTER/EDIT ORDERABLES Final Result * (ABNORMAL) POCT HGB A1C (09/14/2024 10:10 AM EDT) Pathologist [facility] Hemoglobin A1C 5.1(In Process) 4.0 - 5.7 % QC Media Lot # [id number] Lot# Expiration Date Blood 09/14/2024 10:1 0 AM EDT Whitney Quintero MD POINT OF CARE TEST ENTER/EDIT ORDERABLES Final Result * Respiratory Viral Panel PCR (09/14/2024 9:30 AM EDT) [facility] Adenovirus PCR Not Detected Not Detect. [facility] Bordetella pertussis PCR Not Detected Not Detect. [facility] Comment:Interpret results wi th caution. If B. pertussis isspecifically suspected, additional testing using analternate method is recommended. Bordetella parapertussis PCR Not Detected Not Detect. [facility] Chlamydia pneumoniae PCR Not Detected Not Detect. [facility] Coronavirus 229E PCR Not Detected Not Detect. [facility] Coronavirus HKU1 PCR Not Detected Not Detect. [facility] Coronavirus NL63 PCR Not Detected Not Detect. [facility] Coronavirus OC43 PCR Not Detected Not Detect. [facility] SARS-CoV-2 PCR Not Detected Not Detect. [facility] Comment:SARS-CoV-2 not detec alexander by real-time RT-PCR.Note: If clinical suspicion for Sars-CoV-2 is high, continueto maintain precautions and consider repeat testing.Test results should be interpreted in the context ofclinical findings and other laboratory data.Rare polymorphisms exist that could lead to false-negativeor false-positive results. If results do not match theclinical findings, additional testing should be considered.Results reported to [facility].This test has been authorized by the FDA under the EmergencyUse Authorization (EUA) for use by authorized laboratories. Influenza A PCR Not Detected Not Detect. [facility] Influenza A Subtype H1 Not Detected Not Detect. [facility] Influenza A H1-2009 PCR Not Detected Not Detect. [facility] Influenza A Subtype H3 Not Detected Not Detect. [facility] Influenza B PCR Not Detected Not Detect. [facility] Human metapneumovirus PCR Not Detected Not Detect. [facility] Rhino/Enterovirus PCR Not Detected Not Detect. [facility] Mycoplasma pneumoniae PCR Not Detected Not Detect. [facility] Parainfluenza 1 PCR Not Detected Not Detect. [facility] Parainfluenza 2 PCR Not Detected Not Detect. [facility] Parainfluenza 3 PCR Not Detected Not Detect. [facility] Parainfluenza 4 PCR Not Detected Not Detect. [facility] RSV PCR Not Detected Not Detect. [facility] Resp Panel NA Note See Note [facility] Comment:All results must be correlated with clinical findings.Negative results should not be used as the sole basis fordiagnosis, treatment, or other management decisions.A negative result does not exclude the possibility of viralor bacterial infection. Negative results may occur from thepresence of sequence variants in the region targeted by theassay, the presence of inhibitors, an infection caused by anorganism not detected by the panel, or lower respiratorytract infections that are not detected by a nasopharyngealswab specimen. Test results may also be affected byconcurrent antiviral/antibacterial therapy or levels oforganism in the specimen that are below the limit ofdetection for this test.This assay is performed by Multiplexed PCR, utilizing [employer] Array. Swab 09/14/2024 9:30 AM EDT 09/14/2024 5:22 PM EDT us Whitney Quintero MD LAB BLOOD ORDERABLES Final Re sult Performing Organization Address [facility] Co de Phone Number [facility] [address] [place] [phone] * Culture, Throat (09/14/2024 9:30 AM EDT) Throat Structure of anterior portion of neck / Unknown 09/14/2024 9:30 AM EDT 09/14/2024 5:22 PM EDT Comment:Throat Narrative [facility] - 09/16/2024 11:15 AM EDT Throat Culture No Group A Beta-hemolytic Streptococci isolated. Specimen Source: Throat us Whitney Quintero MD LAB MICROBIOLOGY - GENERAL OR DERABLES Final Result Performing Organization Address [facility] Co de Phone Number [facility] [address] [place] [phone] from Last 3 Months [facility] # [facility] [place] [id number] [facility] OPEN ACCESS # [address] [id number] # 1 NAINA MICHELE [id number] # 1 [place] [id number] Care Teams Executive Team Leader Relationship Specialty Start Date End Date Mariana Morgan MD [address] [place] [address] NA[place] Michele [phone] PCP - General Internal Medicine 03/15/24
--- OUTSIDE RECORDS SUMMARY | 2024-11-28 10:30 | XMS_ITS | Encounter Summary ---
Author Organization [employer] [facility] Address [address] [place] [address] Care Team Providers Care Retail Store Manager Name Role Phone Mariana Morgan MD Primary Care Provider [phone] Mariana Morgan MD Primary Care Provider [phone]- [phone] Encounter Details Date Type Department Care Team (Late Contact Info) Description 11/24/2022 Orders Only [facility] [address] [place] [address] Love Vivas LPN Social History Tobacco Use [...] Description 01/02/2025 2:45 PM EDT Office Visit [facility] [address] [place] [address] Mariana Morgan MD [address] [place] [address] documented as of this encounter Visit Diagnoses Not on filedocumented in this encounter Care Teams Retail Store Manager Relationship Specialty Start Date End Date Mariana Morgan MD [address] [place] [address] PCP - General Internal Medicine 08/08/17 04/10/23 Mariana Morgan MD [address] [place] [phone] PCP - General Internal Medicine 03/15/24 documented as of this encounter
--- OUTSIDE RECORDS SUMMARY | 2024-11-28 10:30 | XMS_ITS | Encounter Summary ---
Author Organization [employer] Address [address] [address] Care Team Providers Care Hunting Sales Leader Name Role Phone Mariana Morgan MD Primary Care Provider Reason for Visit * Reason Onset Date Comments Chart Prep 11/26/2024 Encounter Details Date Type Department Care Team ([facility] st Contact Info) Description 11/26/2024 Telephone [facility] [address] [place] [address] Mariana Morgan MD [address] [place], [place] [phone] Chart Prep Social History Tobacco Use Types Packs/Day Years [...] AM EDT documented as of this encounter Miscellaneous Notes * Telephone Encounter - Martina Rodriguez [place] - 11/26/2024 11:29 AM EDT Chart Prep Labs: not applicable Images: done Referrals: appointment pending Vaccines due: Tdap, RSV, and Zoster Screenings: colonoscopy Overdue care gaps: SBIRT, SDOH, PHQ-9, and Tobacco documented in this encounter Plan of Treatment Upcoming Encounters Date Type Department Care Team (Late st Contact Info) Description 01/02/2025 2:45 PM EDT Office Visit [facility] [address] [place] [address] Mariana Morgan MD [address] [place] [address] documented as of this encounter Visit Diagnoses Not on filedocumented in this encounter Care Teams Hunting Sales Leader Relationship Specialty Start Date End Date Mariana Morgan MD [address] [place] [address] PCP - General Internal Medicine 03/15/24 documented as of this encounter
--- OUTSIDE RECORDS SUMMARY | 2024-11-28 10:30 | XMS_ITS | Encounter Summary ---
Author Organization [facility] Address [address] [place] [address] Care Team Providers Care Windows Server Specialist Name Role Phone Mariana Morgan MD Primary Care Provider [phone] Mariana Morgan MD Primary Care Provider [phone]- [phone] Reason for Visit * Reason Comments Med Refill Encounter Details Date Type Department Care Team (Late st Contact Info) Description 09/20/2022 Refill [facility] [address] [place] [address] Whitney Quintero MD [address] [place] [address] Primary hypertension Social History Tobacco Use Types [...] Description 01/02/2025 2:45 PM EDT Office Visit [facility] [address] [place] [address] Mariana Morgan MD [address] [place] [address] documented as of this encounter Visit Diagnoses Diagnosis Primary hypertension Unspecified essential hypertension documented in this encounter Care Teams Windows Server Specialist Relationship Specialty Start Date End Date Mariana Morgan MD [address] [place] [address] PCP - General Internal Medicine 08/08/17 04/10/23 Mariana Morgan MD [address] [place] [address] PCP - General Internal Medicine 03/15/24 documented as of this encounter
--- OUTSIDE RECORDS SUMMARY | 2024-11-28 10:30 | XMS_ITS | Encounter Summary ---
Author Organization [facility] [facility] Address [address] [place] [address] Care Team Providers Care Compress Trucker Name Role Phone Mariana Morgan MD Primary Care Provider [phone] Reason for Visit * Reason Comments Med Refill Encounter Details Date Type Department Care Team (Late Contact Info) Description 11/28/2023 Refill [facility] [address] [place] [address] Mariana Morgan MD [address] [place] [address] Social History Tobacco Use Types Packs/Day Years [...] Description 01/02/2025 2:45 PM EDT Office Visit [facility] [address] [place] [address] Mariana Morgan MD [address] [place] [address] documented as of this encounter Visit Diagnoses Not on filedocumented in this encounter Care Teams Compress Trucker Relationship Specialty Start Date End Date Mariana Morgan MD [address] [place] [address] PCP - General Internal Medicine 03/15/24 documented as of this encounter
== END 2024-11-28 08:56 | disposition home or self-care (01) ==
LOC: HO.RESP 08:55
PROVIDERS: PCP Internal Medicine; Visit Provider Family Medicine
DX: R06.2 Wheezing (principal)
CPT/HCPCS: 94010; 94640; 94727; 94729

== ENCOUNTER → 2024-11-28 08:59 | Outpatient (BNV) | payer OTHER, MEDICARE, SELFPAY | PROVIDERS: PCP Internal Medicine; Visit Provider Hospitalist | DX: R06.2 Wheezing (principal) | CPT/HCPCS: 94060; 94727; 94729 ==

== ENCOUNTER 2025-01-31 15:33 | Outpatient (REF) | payer OTHER, MEDICARE, SELFPAY ==
--- OUTSIDE RECORDS SUMMARY | 2025-01-31 14:00 | XMS_ITS | Encounter Summary ---
Author Organization [employer] Address [address] [address] Care Team Providers Care Radiology Interventional Physician Name Role Phone Mariana Morgan MD Primary Care Provider [phone]- [phone] Reason for Visit * Reason Comments Annual Exam Encounter Details Date Type Department Care Team ([facility] st Contact Info) Description 01/31/2025 2:00 PM EST Office Visit [facility] MED & PEDS [address], [place] [phone] Mariana Morgan MD [address], [place] [phone] Annual physical exam (Primary Dx); Primary hypertension; Libido, decreased; Dry skin; Bilateral impacted cerumen; Encounter for immunization Social History Tobacco Use Types Packs/Day Years [...] Sign Reading Time Taken Comments Blood Pressure 146/80 01/31/2025 2:03 PM EST Pulse 102 01/31/2025 2:03 PM EST Temperature 36.8 C (98.3 F) 01/31/2025 2:03 PM EST Respiratory Rate 20 01/31/2025 2:03 PM EST Oxygen Saturation 96% 01/31/2025 2:03 PM EST Inhaled Oxygen Concentration - - Weight 78.9 kg (174 lb) 01/31/2025 2:03 PM EST Height 169 cm (5' 6.54 ) 01/31/2025 2:03 PM EST Body Mass Index 27.63 01/31/2025 2:03 PM EST documented in this encounter Progress Notes * Mariana Morgan MD - 01/31/2025 2:00 PM EST SUBJECTIVE George White is a 69 y.o. male who presents for Annual Exam. George White, 69-year-old male - Fall at work on January 17, 2025, resulting in soreness of arms and back, mild bump to back of head, no loss of consciousness, symptoms improved by January 23, 2025 - History of asthma, increased use of albuterol (3-4 times per week) prior to recent allergy management changes - Significant allergies to multiple substances including aspirin, Sinhala plantain, cats, grasses, wheat, and trees (except cockroach) - Intermittent nasal congestion, denies facial pain, drainage, or significant discomfort - Received allergy injections on December 10, 2024, with subsequent body aches and discomfort for 4 days, described as similar to infection - Discontinued propranolol, monitoring blood pressure without medication - Expressed decreased libido, no depression, occasional feelings of failure related to his perceived lack of communication skills - History of kidney stones, underwent procedures in 2017 and 2021, last ultrasound in spring 2023 showed no significant stones, currently on reduced dose of vitamin B6 - Dry skin, attempted use of moisturizing lotion with poor absorption - Congestion causing occasional throat symptoms when speaking Problem List[1] Allergies[2] Medications Ordered Prior to Encounter[3] Review of Systems Constitutional: Negative for appetite change, chills and diaphoresis. HENT: Negative for drooling, ear discharge, ear pain and facial swelling. Respiratory: Negative for cough, choking and stridor. Cardiovascular: Negative for leg swelling. Gastrointestinal: Negative for anal bleeding, blood in stool and constipation. Musculoskeletal: Negative for gait problem, joint swelling and myalgias. Skin: Negative for pallor and rash. OBJECTIVE Vitals: 01/31/25 1403 BP: (!) 146/80 BP Location: Left arm Patient Position: Sitting BP Cuff Size: Adult Pulse: 102 Resp: 20 Temp: 98.3 ??F (36.8 ??C) TempSrc: Oral SpO2: 96% Weight: 174 lb (78.9 kg) Height: 5' 6.54 (1.69 m) Physical Exam Constitutional: General: He is not in acute distress. Appearance: Normal appearance. He is not ill-appearing, toxic-appearing or diaphoretic. Cardiovascular: Rate and Rhythm: Normal rate. Pulmonary: Effort: Pulmonary effort is normal. Abdominal: Palpations: Abdomen is soft. Genitourinary: Penis: Normal. Testes: Normal. Musculoskeletal: General: Normal range of motion. Skin: General: Skin is dry. Neurological: General: No focal deficit present. Mental Status: He is alert. Psychiatric: Mood and Affect: Mood normal. Assessment/Plan Assessment/Plan Diagnoses and all orders for this visit: Annual physical exam - Hepatitis C Antibody with Reflex to HCV, RNA, Quantitative, Real-Time PCR; Future - CBC auto differential; Future - Comprehensive Metabolic Panel; Future - Lipid Panel, Standard; Future - TSH with Reflex to Free T4; Future Primary hypertension - Blood Pressure kit; BP check every other day. Libido, decreased - Testosterone, Free (Dialysis) And Total, MS; Future Dry skin Bilateral impacted cerumen Encounter for immunization - FLU VACCINE TRIVALENT HIGH DOSE [id number] (Fluzone) 65 yrs + - TDAP VACCINE 7 yrs + Annual physical exam: - Physical exam is normal. No concerning findings. Primary hypertension: - Blood pressure mildly elevated at 146/80 mmHg. Not currently on antihypertensive medication. - Monitor blood pressure at home two to three times per week and keep a log for review. Follow-up in 4-6 weeks to reassess blood pressure and determine need for further management. Libido, decreased: - Decreased libido. No evidence of depression. Partner interested in sexual relations. Will check testosterone level to evaluate for possible hypogonadism. - Order morning testosterone level between 8:00 and 10:00 AM. Consider testosterone replacement if levels are low. Dry skin: - Dry skin noted. - Recommended use of CeraVe Relief Moisturizing Lotion after showering, while skin is still damp. Bilateral impacted cerumen: - Cerumen impaction resolved. Bilateral ears are clean. Allergic rhinitis and asthma: - Allergic rhinitis and asthma managed with increased Symbicort dosage and initiation of allergy drops. Intermittent nasal congestion present. No facial pain or drainage. Asthma symptoms improved with increased Symbicort dose. - Continue Symbicort two puffs twice daily. Begin allergy drops at home as instructed by cosmetician,starting with one drop daily and titrating up to five drops per day as tolerated. Use EpiPen duringinitial administration in office. Continue environmental control measures including mattress and pillow covers, air purifier with HEPA filter, and vent filters. Scheduled follow-up with cosmetician on February 04, 2025. - Risks and side effects: Discussed risk of adverse reaction to allergy drops; advised to have EpiPen available during initial administration. Immunizations: - Immunizations due for age. - Administered tetanus and influenza vaccines during visit. Pneumococcal vaccine to be considered at next visit. RSV vaccine not available in office; advised to inquire at local pharmacy. Shingles vaccine discussed; patient to check with insurance and pharmacy. - Risks and side effects: Discussed that vaccines do not provide 100% protection but reduce severity and risk of hospitalization. Preventive screening: - Need for cholesterol and hepatitis C screening. - Ordered cholesterol and hepatitis C testing. This note was drafted using Ambient (AI) technology. The patient/patient's guardian has been informed and has consented to the use of this technology: Yes [1] Patient Active Problem List Diagnosis Hypertension [...] mouth Once per day. 30 tablet 0 losartan (Cozaar) 25 MG tablet Take 1 tablet (25 mg) by mouth Once per day. 30 tablet 11 pseudoephedrine (Sudafed) 60 MG tablet Take 1 tablet (60 mg) by mouth every 6 (six) hours if neededfor congestion for up to 10 days. 30 tablet 0 [DISCONTINUED] propranolol (Inderal) 20 MG tablet 20 mg bid x 2 days, 20 mg daily x 2 days 6 tablet0 [DISCONTINUED] propranolol LA (Inderal LA) 60 MG 24 hr capsule Take 1 capsule (60 mg) by mouth in the morning. Do not crush, chew, or split. 90 capsule 3 [DISCONTINUED] propranolol LA (Inderal LA) 60 MG 24 hr capsule TAKE 1 CAPSULE DAILY 90 capsule 1 No current facility-administered medications on file prior to visit. documented in this encounter Plan of Treatment Upcoming Encounters Date Type Department Care Team (Late st Contact Info) Description 03/25/2025 9:15 AM EST Office Visit [facility] [address] [place] [address] Mariana Morgan MD [address] [place] [phone] Scheduled Orders Name Type Priority Associated Diagnoses Orde r Schedule Hepatitis C Antibody with Reflex to HCV, RNA, Quantitative, Real-Time PCR Lab Routine Annual physical exam Expected: 01/31/2025, Expires: 01/31/2026 Comprehensive Metabolic Panel Lab Routine Annual physical exam Expected: 01/31/2025 (Approximate), Expires: 01/31/2026 Lipid Panel, Standard Lab Routine Annual physical exam Expected: 01/31/2025 (Approximate), Expires: 01/31/2026 TSH with Reflex to Free T4 Lab Routine Annual physical exam Expected: 01/31/2025 (Approximate), Expires: 01/31/2026 Testosterone, Free (Dialysis) And Total, MS Lab Routine Libido, decreased Expected: 01/31/2025 (Approximate), Expires: 01/31/2026 documented as of this encounter Procedures Procedure Name Priority Date/Time Associated Diagnosis Comments CBC WITH AUTO DIFFERENTIAL Routine 01/31/2025 3:35 PM EST Annual physical exam documented in this encounter Results * CBC auto differential (01/31/2025 3:35 PM EST) White Blood Count 9.3 4.8 - 10.8 X10*3/uL [facility] Red Blood Count 4.81 4.60 - 5.80 X10*6/uL [facility] Hemoglobin 14.9 14.0 - 18.0 g/dl [facility] Hematocrit 45.2 42.0 - 52.0 % [facility] Mean Corpuscular Volume 94.0 80.0 - 98.0 fL [facility] Mean Corpuscular Hemoglobin 31.0 27.0 - 33.0 pg [facility] Mean Corpuscular HGB Conc 33.0 31.0 - 36.0 g/dl [facility] Red Cell Distribution Width 12.2 11.0 - 16.0 % [facility] Platelet Count 237 160 - 400 X10*3/uL [facility] Mean Platelet Volume 10.3 9.4 - 12.4 fL [facility] Neutrophils Percent Auto 60.7 45 - 73 % [facility] Imm Gran Pct Auto 0.3 0.0 - 0.4 % [facility] Lymphocytes Percent Auto 25.2 20 - 40 % [facility] Monocytes Percent Auto 10.9 2 - 11 % [facility] Eosinophils Percent Auto 1.9 0 - 4 % [facility] Basophils Percent Auto 1.0 0 - 2 % [facility] NRBC Pct Auto 0.0 0.0 - 0.2 /100WBC [facility] Neutrophils Absolute Auto 5.7 2.0 - 8.3 x10*3/uL [facility] Imm Gran Abs Auto 0.03 0.00 - 0.03 X10*3/uL [facility] Lymphocytes Absolute Auto 2.4 1.2 - 4.9 X10*3/uL [facility] Monocytes Absolute Auto 1.0 0.1 - 1.2 X10*3/uL [facility] Eosinophils Absolute Auto 0.2 0.0 - 0.4 X10*3/uL [facility] Basophils Absolute Auto 0.1 0.0 - 0.2 X10*3/uL [facility] NRBC Abs Auto 0.000 0.0 - 0.012 X10*3/uL [facility] Blood Venous blood specimen / Unknown 01/31/2025 3:35 PM EST 01/31/2025 5:39 PM EST us Mariana Morgan MD LAB BLOOD ORDERABLES Final Result [facility] [address] [place] [phone] documented in this encounter Visit Diagnoses Diagnosis Annual physical exam- Primary Routine general medical examination at a health care facility Primary hypertension Unspecified essential hypertension Libido, decreased Decreased libido Dry skin Other symptoms involving skin and integumentary tissues Bilateral impacted cerumen Impacted cerumen Encounter for immunization documented in this encounter Additional Health Concerns Assessment Noted Time PHQ-9 Depression Total Score: 2 11/28/19 25 4:29 PM EDT documented as of this encounter Care Teams Radiology Interventional Physician Relationship Specialty Start Date End Date Mariana Morgan MD [address] [place] [id number] PCP - General Internal Medicine 03/15/24 documented as of this encounter
[2025-01-31 17:45] LABS: MANUAL DIFF FLAG NO
[2025-01-31 17:58] LABS: Hematocrit 45.2 % (42.0-52.0); Hemoglobin 14.9 g/dl (14.0-18.0); Imm Gran Abs Auto 0.03 X10*3/uL (0.00-0.03); Imm Gran Pct Auto 0.3 % (0.0-0.4); Lymphocytes Absolute Auto 2.4 X10*3/uL (1.2-4.9); Mean Corpuscular HGB Conc 33.0 g/dl (31.0-36.0); Mean Corpuscular Hemoglobin 31.0 pg (27.0-33.0); Mean Corpuscular Volume 94.0 fL (80.0-98.0); NRBC Abs Auto 0.000 X10*3/uL (0.0-0.012); NRBC Pct Auto 0.0 /100WBC (0.0-0.2); Platelet Count 237 X10*3/uL (160-400); Red Blood Count 4.81 X10*6/uL (4.60-5.80); White Blood Count 9.3 X10*3/uL (4.8-10.8)
--- OUTSIDE RECORDS SUMMARY | 2025-01-31 18:33 | XMS_ITS | Encounter Summary ---
Author Organization [employer] [facility] Address [address] [place] [address] Care Team Providers Care Residential Program Manager Name Role Phone Mariana Morgan MD Primary Care Provider [phone]- [phone] Mariana Morgan MD Primary Care Provider [phone]- [phone] Reason for Visit * Reason Comments Med Refill Encounter Details Date Type Department Care Team (Late st Contact Info) Description 09/20/2022 Refill [facility] & PEDS [address] [place] [address] Whitney Quintero MD [address] [place] [address] Primary hypertension Social History Tobacco Use Types [...] Description 03/25/2025 9:15 AM EST Office Visit [facility] PEDS [address] [place] [address] Mariana Morgan MD [address] [place] [address] documented as of this encounter Visit Diagnoses Diagnosis Primary hypertension Unspecified essential hypertension documented in this encounter Care Teams Residential Program Manager Relationship Specialty Start Date End Date Mariana Morgan MD [address] [place] [address] PCP - General Internal Medicine 08/08/17 04/10/23 Mariana Morgan MD [address] [place] [address] PCP - General Internal Medicine 03/15/24 documented as of this encounter
--- OUTSIDE RECORDS SUMMARY | 2025-01-31 18:33 | XMS_ITS | Encounter Summary ---
Author Organization [employer] [facility] Address [address] [place] [address] Care Team Providers Care Fancy Packer Name Role Phone Mariana Morgan MD Primary Care Provider [phone]- [phone] Reason for Visit * Reason Comments Med Refill Encounter Details Date Type Department Care Team (Late st Contact Info) Description 11/28/2023 Refill [facility] MED & PEDS [address] [place] [address] Mariana Morgan MD [address] [place] [address] Social History Tobacco Use Types Packs/Day Years [...] Description 03/25/2025 9:15 AM EST Office Visit [facility] [address] [place] [address] Mariana Morgan MD [address] [place] [address] documented as of this encounter Visit Diagnoses Not on filedocumented in this encounter Care Teams Fancy Packer Relationship Specialty Start Date End Date Mariana Morgan MD [address] [place] [address] PCP - General Internal Medicine 03/15/24 documented as of this encounter
--- OUTSIDE RECORDS SUMMARY | 2025-01-31 18:33 | XMS_ITS | Encounter Summary ---
Author Organization [employer] Address [address] [facility] [address] [place] [address] Care Team Providers Care On Air Talent Name Role Phone Mariana Morgan MD Primary Care Provider [phone] Encounter Details Date Type Department Care Team (Latest Contact Info) Description 01/31/2025 Travel Social History Tobacco Use Types Packs/Day [...] Upcoming Encounters Date Type Department Care Team ([facility] st Contact Info) Description 03/25/2025 9:15 AM EST Office Visit [facility] MED & PEDS [address] [place] [address] Mariana Morgan MD [address] [place] [address] documented as of this encounter Visit Diagnoses Not on filedocumented in this encounter Additional Health Concerns Assessment Noted Time PHQ-9 Depression Total Score: 2 11/28/19 25 4:29 PM EDT documented as of this encounter Care Teams On Air Talent Relationship Specialty Start Date End Date Mariana Morgan MD [address] [place] [address] PCP - General Internal Medicine 03/15/24 documented as of this encounter
--- OUTSIDE RECORDS SUMMARY | 2025-01-31 18:33 | XMS_ITS | Data Portability ---
Author Organization [place] - [facility], Allergy Address [address] [address] Care Team Providers Care Plant Utility Person Name Role Phone MARILYN URBAN Primary Care Provider Assessment Encounter Date Assessment Date Assessment LastModified by Organization Details LastModified Time 10/17/2024 10/17/2024 1. Allergic Rhinitis Symptoms suggestive of allergic rhinitis influenced by home environmental changes. Continued Flonase treatment and future telehealth follow-up are recommended for symptom assessment. 2. Allergic Asthma Likely exacerbated by pet exposures and past asthma history. An inhaler containing a steroid and long-acting bronchodilator was prescribed; follow-up with pulmonary function test is required. 3. Chronic Sinusitis Addressed with an extended doxycycline course, with future imaging and allergy evaluation anticipated if symptoms remain unresolved post-treatment. 4. Deviated Nasal Septum Confirmed during examination as contributing to nasal obstruction; consideration for surgical intervention remains if medical management is ineffective. Procedure Documentation: - Nasal endoscopy: Informed consent was obtained with patient permission granted and financial implications discussed. During endoscopy, the examination noted a deviated nasal septum impeding full visualization, but no nasal polyps or purulent material were observed. [email or web address] Not available 10/17/2024 14:04:33 11/13/2024 11/13/2024 Asthma controlle d with Symbicort. No recent need for albuterol. Sinus symptoms improved with doxycycline. Continues on fluticasone and loratadine. Will discuss with PCP switching off propranolol to may be a calcium channel jackson with or without a diuretic to control his hypertension so that we can perform allergy testing and consider immunotherapy. He has upcoming appointment first week in November. Doximity visit with MD and Pt in [place] bettye Not available 11/13/2024 13:51:28 01/04/2025 01/04/2025 Inderjit White is a 69-year-old male with significant allergies and asthma. The patient has demonstrated high sensitivity to multiple allergens, including aspen trees, [place] plantain, cats, grasses, weeds, and trees, with the exception of cockroach. Allergy testing revealed elevated sensitivity levels, with scores of seven for aspen trees, [place] plantain, and cats, and multiple sixes for other allergens. Allergy is considered a significant contributor to the patient's symptoms. The patient reports intermittent nasal congestion but denies facial pain or color drainage. He has a history of asthma and has used albuterol three to four times in the past week. He is currently taking Symbicort, one puff twice daily, and has been advised to increase the dosage to two puffs twice daily to reduce the need for albuterol use. The patient has discontinued propranolol and reports stable blood pressure readings without the medication. Discontinuation of propranolol may also benefit his asthma management and allow for initiation of allergy immunotherapy. The patient has expressed interest in pursuing allergy drops over allergy shots for management of his allergies. Drops are considered to have a lower risk of severe allergic reactions compared to shots and can be administered daily at home after an initial dose in the office. The patient was informed that drops are not covered by insurance. The patient reported significant discomfort and body aches following allergy injections on December 10, which lasted for four days and recurred intermittently. This history supports the decision to proceed with allergy drops. Blood tests will be ordered to check total IgE levels to further evaluate the patient's allergic profile. FOLLOW-UP: The patient will be monitored for response to allergy drops and asthma management. Blood test results will be reviewed during the next visit. [email or web address] Not available 01/04/2025 09:03:01 Plan of Treatment Reminders Order Date Submit Date Provider Last Modified By Organization Details Last Modified Time Details Appointments Allergy SLIT-new 2024 09:00A M [facility] Not available Not available Not available Lab ige, total, serum 2024 025 REGI [facility] (Centralized Electronic Ordering - All Locations), Patient Can Go To The Location Of Their Choice, [id number] 01/06/2025 17:15:55 CBC w/ auto diff 2024 [place] [facility] (Centralized Electronic Ordering - All Locations), Patient Can Go To The Location Of Their Choice, [id number] 01/06/2025 17:15:54 Referral None recorded. Procedures spirometr y, including graphic record, total and timed vital capacity, expirator y flow rate measureme nt(s) (PROC) 2024 [email or web address] Not available 11/30/2024 08:39:07 allergy testing, skin prick (PROC) 2024 [place] Not available 12/19/2024 09:23:12 intraderm al allergy skin testing (PROC) 2024 [facility] Not available 12/19/2024 09:23:13 pulse oximetry (PROC) 2024 skorze Not available 12/19/2024 09:23:13 Surgeries None recorded. Imaging None recorded. Medication Orders epinephri ne 0.3 mg/0.3 mL injection , auto-inje ctor 2024 [facility]acy #[id number], [address] [place] [address], [id number], 01/04/2025 09:01:15 doxycycli ne hyclate 100 mg tablet 2024 [facility] #[id number], [address] [place] [address], [id number], 11/13/2024 13:48:07 Symbicort 80 mcg-4.5 mcg/actua tion HFA aerosol inhaler 2024 [facility]/Ph[facility]acy #[id number], [address] [place] [address], [id number], 10/17/2024 14:04:28 Patient TargetsNo targets recorded. Patient Instructions Encounter Date Encounter Id Patient Instructions Last Modified By Organization Details Last Modified Time 10/17/2024 [id number] Please note: Parts of this encounter note have been generated by AI based on audio conversation. Patient consent was required prior to utilizing this technology. Content review was required prior to finalizing the note. [email or web address] Not available 10/17/2024 14:04:31 12/07/2024 [id number] spirometry testing* [email or web address] Not available 12/10/2024 11:25:38 01/04/2025 [id number] sublingual immunotherapy regimen* - extra-dilution .3 [facility] Not available 01/17/2025 04:13:39 - Increase Symbicort dosage to two puffs twice daily. - Begin allergy drops at home, starting with a low dose. - Return to the office for monitoring and review of blood test results. [email or web address] Not available 01/04/2025 09:01:39 Please note: Parts of this encounter note have been generated by AI based on audio conversation. Patient consent was required prior to utilizing this technology. Content review was required prior to finalizing the note. [email or web address] Not available 01/04/2025 09:01:39 Reason for Referral None Reported. Results Created Date Observation Date Name Description Value Unit Range Abnormal Flag Note LastModifiedBy Organization Detail LastModifiedTime 01/05/2001/04/2025 CBC WITH DIFFE RENTI AL/PL ATELE T WBC 6.6 x10e3 /uL 3.4-10 .8 normal Not Available [facility] ([facility]) [address] [place], [address], 01/06/2025 17:15:54 01/05/2001/04/2025 CBC WITH DIFFE RENTI AL/PL ATELE T RBC 4.87 x10e6 /uL 4.14-5 .80 normal Not Available [facility] ([facility]) [address] [place], [address], 01/06/2025 17:15:54 01/05/2001/04/2025 CBC WITH DIFFE RENTI AL/PL ATELE T hemoglobin 15.7 g/dL 13.0-1 7.7 normal Not Available [facility] ([facility]) [address] [place], [address], 01/06/2025 17:15:54 01/05/20 25 01/04/2025 CBC WITH DIFFE RENTI AL/PL ATELE T hematocrit 46.1 % 37.5-5 1.0 normal Not Available [facility] ([facility]) [address] [facility], [place], [address], 01/06/2025 17:15:54 01/05/20 25 01/04/2025 CBC WITH DIFFE RENTI AL/PL ATELE T MCV 95 fL 79-97 normal Not Available [facility] ([facility]) [address] [facility], [place], [address], 01/06/2025 17:15:54 01/05/20 25 01/04/2025 CBC WITH DIFFE RENTI AL/PL ATELE T MCH 32.2 pg 26.6-3 3.0 normal Not Available [facility] ([facility]) [address] [facility], [place], [address], 01/06/2025 17:15:54 01/05/20 25 01/04/2025 CBC WITH DIFFE RENTI AL/PL ATELE T MCHC 34.1 g/dL 31.5-3 5.7 normal Not Available [facility] ([facility]) [address] [facility], [place], [address], 01/06/2025 17:15:54 01/05/20 25 01/04/2025 CBC WITH DIFFE RENTI AL/PL ATELE T RDW 12.3 % 11.6-1 5.4 Not Available [facility] ([facility]) [address] [place], [address], 01/06/2025 17:15:54 01/05/20 25 01/04/2025 CBC WITH DIFFE RENTI AL/PL ATELE T platelets 242 x10e3 /uL 150-45 0 normal Not Available [facility] ([facility]) [address] [place], [address], 01/06/2025 17:15:54 01/05/20 25 01/04/2025 CBC WITH DIFFE RENTI AL/PL ATELE T neutrophils 53 % not estab. normal Not Available [facility] ([facility]) [address] [facility], [place], [address], 01/06/2025 17:15:54 01/05/20 25 01/04/2025 CBC WITH DIFFE RENTI AL/PL ATELE T lymphs 29 % not estab. normal Not Available [facility] ([facility]) [address] [facility], [place], [address], 01/06/2025 17:15:54 01/05/2001/04/2025 CBC WITH DIFFE RENTI AL/PL ATELE T monocytes 13 % not estab. normal Not Available [facility] ([facility]) [address] [facility], [place], [address], 01/06/2025 17:15:54 01/05/20 25 01/04/2025 CBC WITH DIFFE RENTI AL/PL ATELE T eos 4 % not estab. normal Not Available [facility] ([facility]) [address] [facility], [place], [address], 01/06/2025 17:15:54 01/05/20 25 01/04/2025 CBC WITH DIFFE RENTI AL/PL ATELE T basos 1 % not estab. normal Not Available [facility] ([facility]) [address] [facility], [place], [address], 01/06/2025 17:15:54 01/05/20 25 01/04/2025 CBC WITH DIFFE RENTI AL/PL ATELE T immature cells HELICOPTER SPECIALIST Not Available [facility] ([facility]) [address] [facility], [place], [address], 01/06/2025 17:15:54 01/05/20 25 01/04/2025 CBC WITH DIFFE RENTI AL/PL ATELE T neutrophils (absolute) 3.5 x10e3 /uL 1.4-7. 0 normal Not Available [facility] ([facility]) [address] [facility], [place], [address], 01/06/2025 17:15:54 01/05/20 25 01/04/2025 CBC WITH DIFFE RENTI AL/PL ATELE T lymphs (absolute) 1.9 x10e3 /uL 0.7-3. 1 normal Not Available [facility] ([facility]) [address] [facility], [place], [address], 01/06/2025 17:15:54 01/05/20 25 01/04/2025 CBC WITH DIFFE RENTI AL/PL ATELE T monocytes(ab solute) 0.9 x10e3 /uL 0.1-0. 9 normal Not Available [facility] ([facility]) [address] [place], [address], 01/06/2025 17:15:54 01/05/20 25 01/04/2025 CBC WITH DIFFE RENTI AL/PL ATELE T eos (absolute) 0.3 x10e3 /uL 0.0-0. 4 normal Not Available [facility] ([facility]) [address] [place], [address], 01/06/2025 17:15:54 01/05/20 25 01/04/2025 CBC WITH DIFFE RENTI AL/PL ATELE T baso (absolute) 0.1 x10e3 /uL 0.0-0. 2 normal Not Available [facility] ([facility]) [address] [place], [address], 01/06/2025 17:15:54 01/05/20 25 01/04/2025 CBC WITH DIFFE RENTI AL/PL ATELE T immature granulocytes 0 % not estab. Not Available [facility] ([facility]) [address] [place], [address], 01/06/2025 17:15:54 01/05/20 25 01/04/2025 CBC WITH DIFFE RENTI AL/PL ATELE T immature grans (abs) 0.0 x10e3 /uL 0.0-0. 1 Not Available [facility] ([facility]) [address] [facility], [place], [address], 01/06/2025 17:15:54 01/05/2001/04/2025 CBC WITH DIFFE RENTI AL/PL ATELE T NRBC HELICOPTER SPECIALIST Not Available [facility] ([facility]) [address] [facility], [place], [address], 01/06/2025 17:15:54 01/05/2001/04/2025 CBC WITH DIFFE RENTI AL/PL ATELE T hematology comments: HELICOPTER SPECIALIST Not Available [facility] ([facility]) [address] [facility], [place], [address], 01/06/2025 17:15:54 01/05/2001/06/2025 IMMUN OGLOB ULIN E, TOTAL immunoglobul in E, total 95 IU/mL 6-495 Not Available [facility] ([facility]) [address] [facility], [place], [address], 01/06/2025 17:15:55 12/08/19 sienna metry testi ng* No observ ation record ed. [email or web address] Not Available 2024 12:07:30 Result Notes None recorded. Problems Name Problem SNOMED Code Status Onset Date Resolution Date Notes Provider Name and Address Organization Details Recorded Time Acute exacerbatio n of intermitten t allergic asthma Active 2024 STEVE ALCANTARA MD 100 [facility] [address], [place], [address], [facility] 14:03:04 Chronic sinusitis 53762183 Active 2024 STEVE ALCANTARA MD 100 [facility] [address], [place], [address], [place] - [facility] 5 14:03:18 Deviated nasal septum 674549134 Active 2024 STEVE ALCANTARA MD [address] [address], [place], [address], [facility] - [facility] 5 14:03:25 Mild persistent allergic asthma 2368272377653 9106 Active 2024 STEVE ALCANTARA MD [address] [address], [place], [address], [facility] - [facility] 5 13:50:50 Perennial allergic rhinitis 551686195 Active 2024 Noé Gamboa [address] [facility],[place] [place] [address], [facility] [place], [address], [facility] 5 09:09:32 Polyp of nasal cavity 038602779 Active 2024 STEVE ALCANTARA MD 100 [facility],[address] [address], [place], [address], [facility] - [facility] 5 08:59:55 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 Procedures Surgical History Date Name Laterality Status Provider Name and Address Organization Details Recorded Time 5 Allergy Testing-Full completed Noé Cooper [address] [facility],[address] [address], [place], [address], [facility] - [facility] 12/10/2024 11:31:34 5 Allergy Testing-Full completed Noé Gamboa [address] [facility],[address] [address], [place], [address], [facility] - [facility] 12/07/2024 09:46:24 5 JMSNasal/Sinus Endoscopy completed STEVE RIDDLE MD [address] [place] [address], [address], [place] - [facility] 10/17/2024 14:05:04 Imaging Results None recorded. Procedure Notes None recorded. Medical Equipment None Reported. Allergies Allergen ID Allergen Name Allergen Category Reaction Reaction Severity Criticality Documentation Date Start Date Code Code System Note Provider Name and Address Organization Details Recorded Time 669560 weed pollen environme nt,medica tion wheezing moderate Not available 01/04/20252024 Shweta pan [facility] 08:41:14 755879 grass pollen environme nt,medica tion eye redness severe Not available 01/04/20252024 Shweta pan [facility] 08:41:14 681930 tree and shrub pollen environme nt,medica tion itching moderate Not available 01/04/20252024 Shweta pan [facility] 08:41:14 333711 house dust mite environme nt cough moderate Not available 01/04/20252024 Shweta pan [facility] 5 08:41:14 714450 mold extract environme nt wheezing moderate Not available 01/04/20252024 46675 8 RxNorm Shweta pan [facility] 08:41:14 Medications Name Sig Start Date Stop Date Status Note LastModified by Organization Details LastModified Time prednisone 20 mg tablet TAKE 2 TABLETS BY MOUTH DAILY FOR 5 DAYS 10/17 completed Not Available Not Available Not Available propranolol ER 60 mg capsule,24 hr,extended release TAKE 1 CAPSULE DAILY 12/01 completed Not Available Not Available Not Available doxycycline monohydrate 100 mg tablet TAKE 1 TABLET BY MOUTH TWICE A DAY FOR 7 DAYS 10/17 completed Not Available Not Available Not Available Sudogest 30 mg tablet TAKE TWO TABLETS EVERY 6 HOURS NEEDED FOR CONGESTIO N FOR UP TO 10 DAYS 10/17 completed Not Available Not Available Not Available Ear Wax Removal Drops 6.5 % PLACE THREE TO FIVE DROPS IN AFFECTED EAR(S) TWICE DAILY FOR FOUR DAYS 01/04 completed Not Available Not Available Not Available metronidazo le 0.75 % topical cream Apply pea-sized amount to face 1 TO 2 TIMES DAILY active Not Available Not Available No t Available losartan 25 mg tablet TAKE ONE TABLET BY MOUTH ONCE DAILY active Not Available Not Available No t Available pyridoxine (vitamin B6) 50 mg tablet TAKE ONE TABLET DAILY active Not Available Not Available No t Available epinephrine 0.3 mg/0.3 mL injection, auto-inject or USE 1 AUTOINJEC TION DIRECTED BY PROVIDER active Not Available Not Available No t Available albuterol sulfate HFA 90 mcg/actuati on aerosol inhaler INHALE TWO PUFFS EVERY 4 HOURS NEEDED FOR WHEEZING active Not Available Not Available No t Available propranolol 20 mg tablet TAKE ONE TABLET BY MOUTH TWICE DAILY FOR TWO DAYS THEN ONCE DAILY FOR TWO DAYS active Not Available Not Available No t Available ketoconazol e 2 % topical cream APPLY TOPICALLY TO AFFECTED AREA(s) TWICE DAILY FOR FOURTEEN DAYS. REPEAT NEEDED active Not Available Not Available No t Available fluticasone propionate 50 mcg/actuati on nasal spray,suspe nsion PLEASE SEE ATTACHED FOR DETAILED DIRECTION S active Not Available Not Available No t Available doxycycline hyclate 100 mg tablet TAKE 1 TABLET BY MOUTH TWICE A DAY 11/13 completed Not Available Not Available Not Available loratadine 10 mg tablet TAKE 1 TABLET 2 TIMES PER DAY FOR 90 DAYS active Not Available Not Available No t Available amoxicillin 875 mg-potassiu m clavulanate 125 mg tablet TAKE 1 TABLET BY MOUTH TWICE A DAY FOR 7 DAYS 10/15 completed Not Available Not Available Not Available moxifloxaci n 0.5 % eye drops INSTILL 1 DROP INTO LEFT EYE 3 TIMES A DAY FOR 7 DAYS 10/15 completed Not Available Not Available Not Available losartan 01/04 completed Not Available Not Available Not Available budesonide- formoterol HFA 80 mcg-4.5 mcg/actuati on aerosol inhaler INHALE 1 PUFF TWICE A DAY BY INHALATIO N ROUTE. active Not Available Not Available No t Available Eye Itch Relief 0.025 % (0.035 %) drops PLACE ONE DROP IN THE AFFECTED EYE(S) TWICE DAILY active Not Available Not Available No t Available Vitamin D3 10 mcg (400 unit) chewable tablet Take by oral route. active Not Available Not Available No t Available Vitals Date Recorded Body height Body mass index (BMI) Body weight Provider Name and Address Organization Details Last Updated DateTime 10/17/2024 167.64 cm 27.6 kg/m2 29996.3 g Ramonita Alexislenard [facility] 10/17/2024 13:24:42 Date Recorded Body height Body mass index (BMI) Body weight Oxygen saturation Oxygen saturation in Arterial blood by Pulse oximetry Heart rate Systolic And Diastolic Provider Name and Address Organization Details Last Updated DateTime 167.64 cm 27.8 kg/m2 70407.8 9 g 98 % 98 % 73 /min 126/71 mm[Hg] [address], [address], [place] - [facility] 09:22:43 Date Recorded Oxygen saturation Oxygen saturation in Arterial blood by Pulse oximetry Heart rate Systolic And Diastolic Provider Name and Address Organization Details Last Updated DateTime 12/10/2024 99 % 99 % 93 /min 145/83 mm[Hg] AUDREY RENAE RN [address], [address] , [place] - [facility] 11:19:41 Date Recorded Body height Body mass index (BMI) Body weight Provider Name and Address Organization Details Last Updated DateTime 12/10/2024 167.64 cm 27.8 kg/m2 [address]3713.[address], [address], [place] - [facility] 12/10/2024 10:37:49 Date Recorded Body height Body weight Systolic And Diastolic Provider Name and Address Organization Details Last Updated DateTime 01/04/2025 167.64 cm 75803.89 g 132/84 mm[Hg] Shweta Sung [place] - [facility] 01/04/2025 08:51:02 Social History Question Answer Notes LastModified by Organizat ion Details LastModified Time Tobacco Smoking Status Former Smoker STEVE RIDDLE MD 100 [facility],[address] [address], [place], [address], [place] - [facility] 11/13/2024 13:51:51 What Type Of Fitter Armament Do You Use? None Information not available 11/13/2024 When Did You Quit Smoking? 16+yearssinc elastcigaret te Information not available 11/13/2024 What Is Your Current Pack Years? 10packyears Information not available 11/13/2024 Do You Have Any Pets? Yes Information not available 11/13/2024 At What Age Did You Start Smoking Tobacco? 15 Information not available 11/13/2024 Are You Passively Exposed To Smoke? Yes Information not available 11/13/2024 Are There Any Smokers In Your House? No Information not available 11/13/2024 How Much Tobacco Do You Smoke? No Information not available 11/13/2024 How Many Years Have You Smoked Tobacco? 1 Information not available 11/13/2024 Sex: Unknown Functional Status Question Answer Note LastModified by Organization Details LastModified Time Do you use any illicit or recreational drugs? No Information not available 11/13/2024 Do you or have you ever used any other forms of tobacco or nicotine? No Information not available 11/13/2024 What type of noise exposure are you exposed to? noExposureToExcessiveNoise [id number] Infor mation not available 01/04/2025 Mental Status None recorded. Family History Nothing Reported. Medical History Condition Response Allergies/Hayfever Y Heart Problems N Anxiety N Tonsil Infections N Emphysema N Migraines N Thyroid Problems N Glaucoma N Depression N COPD N Developmental Delay N Nasal or Sinus Problems Y Anemia Y Immune System Disorder N Anesthesia Complications N Heart Attack (HI) N Other Skin Condition Y Diabetes N Rhinitis N Bleeding Disorder N Food Allergy N Arthritis N Hearing Loss N Hyperlipidemia N Cancer Y Eczema N Stroke N Dementia N Nasal polyps N Asthma Y High Cholesterol N Sleep Disorder N GERD/Reflux N Liver Disease N Headaches Y Fibromyalgia N Hypertension Y Speech Delay Y Kidney Disease N Past Encounters Encounter ID Performer Location Encounter Start Date Encounter Closed Date Diagnosis/Indication Diagnosis SNOMED-CT Code Diagnosis ICD10 Code Diagnosis IMO Codes Diagnosis Note [id number] STEVE HAWKINS MD [facility] [address] [address] 10/17/2024 13:10:05 10/17/2024 14:14:48 Acute exacerbation of intermittent allergic asthma 8001991060 3530650 J45.21 38107518 Chronic sinusitis 115137 00 J32.8 76541 Deviated nasal septum 12 6935446 J34.2 [id number] STEVE HAWKINS MD [facility] [address] [address] 11/13/2024 13:46:24 11/13/2024 15:44:17 Deviated nasal septum 310995844 J34.2 294947 Chronic sinusitis 624031 00 J32.8 94717 Mild persi stent allergic asthma 2762707513 7788536 J45.30 [id number] Noé Gamboa [facility] [address] [place] [address] 12/07/2024 08:57:33 12/07/2024 09:47:54 Perennial allergic rhinitis 845965041 J30.89 [id number] Noé Cooper [facility] [address] [place] [address] 12/10/2024 10:27:07 12/10/2024 11:33:23 Perennial allergic rhinitis 806161675 J30.89 [id number] STEVE HAWKINS MD [facility] [address] [address] 01/04/2025 08:17:01 01/04/2025 09:03:35 Perennial allergic rhinitis 764545739 J30.89 [id number] We reviewed testing results and medical management of allergy. We discussed options of allergy immunother apy including sublingual and injections . We also discussed the role of immunother apy. I explained that this is instituted for the most significan t of allergies and involves the introducti on of increasing ly graduated dosages of the appropriat e allergens by subcutaneo us injection to facilitate tolerance. I explained about the likelihood of some improvemen t usually within a three to six month time period provided that the patient is compliant with therapy. It may take substantia lly longer for patients with severe allergy. We spoke about the duration of therapy, which typically lasts from three to five years though at times can be indefinite . We also discussed the risk of anaphylaxi s with therapy. Use of an Epipen discussed. We discussed the role of immunother apy. I explained that this involves the introducti on of increasing ly graduated dosages of the appropriat e allergens by sublingual immunother apy to facilitate tolerance. I explained about the likelihood of improvemen t usually within a three to six month time period provided that the patient is compliant with therapy. We spoke about the duration of therapy, which typically lasts from three to five years though at times can be indefinite . We also discussed the risk of anaphylaxi s, throat tightness, stomach upset and eosinophil ic esophagiti s with sublingual immunother apy. Epipen use discussed Mild persi stent allergic asthma [id number] J45.30 [id number] Deviated nasal septum 12 2173770 J34.2 210235 Health Concerns Section Related Observation LastModified by Organization Detai ls LastModified Time None Recorded Concern Status LastModified by Organization Details LastModified Time None Recorded Advance Directives Directive None Recorded Payers Insurance Date Sequence Insurance Name Policy Number Policy Sanchez Covered Member ID Sanchez Member ID Guarantor Name 01/16/2025 2 [place] (MEDICARE [place]PLAC[place] PPO) [id number] George White [id number] George White 01/16/2025 1 [employer] [id number] George White [id number] George White Notes Date Note Type Note Provider Name and Address Organization Details Recorded Time 10/17/2024 text/html ROS as noted in the HPI The patient is a 69-year-old male presenting with respiratory symptoms indicative of allergic rhinitis and asthma. These symptoms include recurring throat issues like frequent clearing and dry cough, noted over the last 4-5 months, exacerbated by recent environmental changes with the addition of two kittens at home. He mentions suffering from childhood asthma, with exposure to dust mites, cats, and feather pillows cited as allergens then. Recently, he has experienced increased nasal congestion and intermittent ear popping. Persistent symptoms prompted use of systemic steroids, antihistamines, and intranasal steroids, saline and irrigations, with incomplete resolution, driving the consultation. Short-term improvement was noted with initial medications, though respiratory complaints remain concerning, necessitating reassessment and ongoing management. Presently on doxycycline and prednisone. Previously had significant facial discomfort and drainage due to sinus disease.[id number] STEVE RIDDLE MD [address] [facility],[address], [address], [facility] 10/17/2024 16:29:35 11/13/2024 text/html Feels generally much better. Notes significant improvement with doxycycline and symbicort 1 puff BID. No need for albuterol Cough improved. Interested in allergy testing STEVE RIDDLE MD [address] [facility],[address], [address], [facility] 11/13/2024 13:51:58 01/04/2025 text/html Inderjit White is a 69-year-old male who presents for evaluation and management of allergies and asthma. He reports significant allergies to various substances, including aspen trees, [place] plantain, cats, grasses, weeds, and trees, with the exception of cockroach. Allergy testing revealed high sensitivity levels, with scores of seven for aspen trees, [place] plantain, and cats, and multiple sixes for other allergens. He has experienced intermittent nasal congestion but denies facial pain, color drainage, or significant discomfort. He has a history of asthma and has used albuterol three to four times in the past week. He is currently taking Symbicort, one puff twice daily, and has been advised to increase the dosage to two puffs twice daily. He has discontinued propranolol and reports stable blood pressure readings without the medication. He has expressed interest in pursuing allergy drops over allergy shots for management of his allergies, citing concerns about the side effects experienced after receiving allergy injections on December 10. He reported feeling unwell for four days following the injections, with symptoms including body aches and discomfort, which he described as similar to an infection. He has one dog and two cats at home, which may contribute to his allergy symptoms. STEVE RIDDLE MD [address] [place] [address], [address], [place] - [facility] 01/04/2025 09:03:18
--- OUTSIDE RECORDS SUMMARY | 2025-01-31 18:33 | XMS_ITS | Encounter Summary ---
Author Organization [employer] Address [address] [facility] [address] [place] [address] Care Team Providers Care Budget Record Clerk Name Role Phone Mariana Morgan MD Primary Care Provider [phone] Encounter Details Date Type Department Care Team (Latest Contact Info) Description 01/30/2025 Travel Social History Tobacco Use Types Packs/Day [...] Upcoming Encounters Date Type Department Care Team ([facility] st Contact Info) Description 03/25/2025 9:15 AM EST Office Visit [facility] [address] [place] [address] Mariana Morgan MD [address] [place] [address] documented as of this encounter Visit Diagnoses Not on filedocumented in this encounter Additional Health Concerns Assessment Noted Time PHQ-9 Depression Total Score: 2 11/28/19 25 4:29 PM EDT documented as of this encounter Care Teams Budget Record Clerk Relationship Specialty Start Date End Date Mariana Morgan MD [address] [place] [address] PCP - General Internal Medicine 03/15/24 documented as of this encounter
--- OUTSIDE RECORDS SUMMARY | 2025-01-31 18:33 | XMS_ITS | Continuity of Care Document ---
Author Organization [place] - [facility], Allergy Address [address] [place] [address] Care Team Providers Care Tank Pumper Panelboard Name Role Phone MARILYN URBAN Primary Care Provider Assessment No assessment recorded. Plan of Treatment Reminders Order Date Submit Date Provider Last Modified By Organization Details Last Modified Time Details Appointments Allergy SLIT-new 2024 09:00A M [facility] Not available Not available Not available Lab None recorded . Referral None recorded . Procedures None recorded . Surgeries None recorded . Imaging None recorded . Medication Orders None recorded . Patient TargetsNo targets recorded. Patient Instructions Encounter Date Encounter Id Patient Instructions Last Modified By Organization Details Last Modified Time 12/07/2024 [id number] spirometry testing* [email or web address] Not available 12/10/2024 11:25:38 Reason for Referral None Reported. Results Created Date Observation Date Name Description Value Unit Range Abnormal Flag Note LastModifiedBy Organization Detail LastModifiedTime 12/08/19 25 sienna metry testi ng* No observ ation record ed. [email or web address] Not Available 2024 12:07:30 Result Notes None recorded. Problems Name Problem SNOMED Code Status Onset Date Resolution Date Notes Provider Name and Address Organization Details Recorded Time Acute exacerbatio n of intermitten t allergic asthma Active 2024 STEVE ALCANTARA MD [address] [place] [address], [phone], [facility] - [facility] 14:03:04 Chronic sinusitis 12318558 Active 2024 STEVE ALCANTARA MD [address] [place] [address] [address], [place], [address], [place] - [facility] [place] 5 14:03:18 Deviated nasal septum 347763791 Active 2024 STEVE ALCANTARA MD [address] [facility],[address], [place], [address], [facility] - [facility] [place] 5 14:03:25 Mild persistent allergic asthma 8450183477881 9106 Active 2024 STEVE ALCANTARA MD [address] [facility],[address], [facility] [place], [address], [place] - [facility] [place] 5 13:50:50 Perennial allergic rhinitis 075773631 Active [address] 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, [address], [place], [address], [facility] - [facility] [place] 5 08:59:55 Problem Notes None recorded. Procedures Surgical History Date Name Laterality Status Provider Name and Address Organization Details Recorded Time 5 Allergy Testing-Full completed Noé Gamboa [address] [facility],[place] [address], [place], [address], [facility] - [facility] 12/10/2024 11:31:34 5 Allergy Testing-Full completed Noé Gamboa [address] [facility],[place] [address], [place], [address], [place] [facility] 12/07/2024 09:46:24 JMSNasal/Sinus Endoscopy completed STEVE RIDDLE MD [address] [place] [address], [address], [place] [facility] 10/17/2024 14:05:04 Imaging Results None recorded. Procedure Notes None recorded. Medical Equipment None Reported. Allergies Allergen ID Allergen Name Allergen Category Reaction Reaction Severity Criticality Documentation Date Start Date Code Code System Note Provider Name and Address Organization Details Recorded Time 248341 weed pollen environme nt,medica tion wheezing moderate Not available 01/04/20252024 Shweta pan [place] - [facility] 08:41:14 857570 grass pollen environme nt,medica tion eye redness severe Not available 01/04/20252024 Shweta pan [place] - [facility] 08:41:14 453090 tree and shrub pollen environme nt,medica tion itching moderate Not available 01/04/20252024 Shweta pan [place] - [facility] 08:41:14 725017 house dust mite environme nt cough moderate Not available 01/04/20252024 Shweta pan [place] - [facility] 5 08:41:14 380514 mold extract environme nt wheezing moderate Not available 01/04/20252024 81906 8 RxNorm Shweta pan [facility] 5 08:41:14 Medications Name Sig Start Date Stop [...] and Address Organization Details Last Updated DateTime 5 167.64 cm 27.8 kg/m2 81551.8 9 g 98 % 98 % 73 /min 126/71 mm[Hg] Noé Gamboa [address] [facility] [address], [place], [address], [facility] 09:22:43 Social History Question Answer Notes LastModified by Organizat ion Details LastModified Time Tobacco Smoking Status Former Smoker STEVE RIDDLE MD [address], [address], [facility] - [facility] 11/13/2024 13:51:51 What Type Of Lan Analyst Do You Use? None Information not available [...] other forms of tobacco or nicotine? [email or web address] Information not available 11/13/2024 What type of noise exposure are you exposed to? noExposureToExcessiveNoise [email or web address] Infor isabela not available 01/04/2025 Mental Status None recorded. Family History Nothing Reported. Medical History Condition Response Allergies/Hayfever Y Heart Problems N Anxiety N Tonsil Infections N Emphysema N Migraines N Thyroid Problems N Depression N COPD N Developmental Delay N Glaucoma N Nasal or Sinus Problems Y Anemia Y Immune System Disorder N Anesthesia Complications N Heart Attack (MD) N Other Skin Condition Y Diabetes N Rhinitis N Bleeding Disorder N Food Allergy N Hearing Loss N Arthritis N Hyperlipidemia N Eczema N Cancer Y Stroke N Dementia N Nasal polyps N Asthma Y Sleep Disorder N High Cholesterol N GERD/Reflux N Liver Disease N Headaches Y Fibromyalgia N Hypertension Y Speech Delay Y Kidney Disease N Past Encounters Encounter ID Performer Location Encounter Start Date Encounter Closed Date Diagnosis/Indication Diagnosis SNOMED-CT Code Diagnosis ICD10 Code Diagnosis IMO Codes Diagnosis Note [id number] STEVE HAWKINS MD [facility] [address] [address] 11/13/2024 13:46:24 11/13/2024 15:44:17 Deviated nasal septum 309078835 J34.2 432313 Chronic sinusitis 146560 00 J32.8 46405 Mild persi stent allergic asthma 0395123147 7847943 J45.30 [id number] On[facility] [address] [place] [address] 12/07/2024 08:57:33 12/07/2024 09:47:54 Perennial allergic rhinitis 906560235 J30.89 895184 Health Concerns Section Related Observation LastModified by Organization Detai ls LastModified Time None Recorded Concern Status LastModified by Organization Details LastModified Time None Recorded Payers Encounter Date Sequence Insurance Name Policy Number Policy Sanchez Covered Member ID Sanchez Member ID Guarantor Name 12/07/2024 2 [place] (MEDICARE REPLACEMENT PPO) [id number] George Whiet [id number] George White 12/07/2024 1 [employer] [id number] George White [id number] George White
--- OUTSIDE RECORDS SUMMARY | 2025-01-31 18:33 | XMS_ITS | Clinical Summary ---
Author Organization [employer] Address [address] [facility] 7[address] [place] [address] Care Team Providers Care Stitching Machine Operator Name Role Phone Mariana Morgan MD Primary Care Provider [phone] Allergies No known active allergies Medications albuterol 108 (90 Base) MCG/ACT inhalerIndicati ons:Wheezing on exhalation Inhale 2 puffs every 4 (four) hours if needed for wheezing. 18 g 09/15/19 25 026 Active pseudoephedrine (Sudafed) 60 MG tabletIndicatio ns:Rhinosinusit is Take 1 tablet (60 mg) by mouth every 6 (six) hours if needed for congestion for up to 10 days. 30 tablet 09/15/19 25 Active Ketotifen Fumarate 0.035 % solutionIndicat ions:Rhinosinus itis Administer 1 drop into affected eye(s) 2 times daily. 10 mL 09/15/19 25 Active loratadine (Claritin) 10 MG tabletIndicatio ns:Rhinosinusit is Take 1 tablet (10 mg) by mouth Once per day. 30 tablet 09/15/19 25 Active losartan (Cozaar) 25 MG tabletIndicatio ns:Primary hypertension Take 1 tablet (25 mg) by mouth Once per day. 30 tablet 11 5 3:46 PM EST 11/28/19 25 026 Active Blood Pressure kitIndications: Primary hypertension BP check every other day. 1 kit 02/01/20 25 Active propranolol LA (Inderal LA) 60 MG 24 hr capsuleIndicati ons:Primary hypertension Take 1 capsule (60 mg) by mouth in the morning. Do not crush, chew, or split. 90 capsule 3 02/15/20 23 025 Discontinued propranolol LA (Inderal LA) 60 MG 24 hr capsuleIndicati ons:Hypertensio n, unspecified type TAKE 1 CAPSULE DAILY 90 capsule 1 10/27/19 25 025 Discontinued(T herapy completed) propranolol (Inderal) 20 MG tabletIndicatio ns:Primary hypertension 20 mg bid x 2 days, 20 mg daily x 2 days 6 tablet 11/28/19 25 025 Discontinued(T herapy completed) Active Problems Problem Noted Date Diagnosed Date [...] chronic rhinosinusitis. Previous treatments with Mucinex and jyux-odz-ziemtln Zyrtec have been ineffective. The patient's history [...] Encounters Date Type Department Care Team Description 01/31/2025 2:00 PM EST Office Visit [facility] [address] [place], [place] [phone] Mariana Morgan MD Annual physical exam (Primary Dx); Primary hypertension; Libido, decreased; Dry skin; Bilateral impacted cerumen; Encounter for immunization 01/31/2025 Travel 01/30/2025 Travel 01/24/2025 Patient Outreach [facility] [address] [place] [address] Mariana Morgan MD Pre-visit Planning (Pre visit planning LVM ) 01/01/2025 Telephone [facility] [address] [place] [address] Mariana Morgan MD Chart Prep 12/31/2024 Travel 12/26/2024 Patient Outreach [facility] [address] [place] [address] Mariana Morgan MD Pre-visit Planning (Pre visit planning LVM ) 11/27/2024 4:00 PM EDT Office Visit [facility] [address] [place] [address] Mariana Morgan MD Primary hypertension (Primary Dx); Rhinosinusitis 11/27/2024 Travel 11/26/2024 Telephone [facility] [address] [place] [address] Mariana Morgan MD Chart Prep from Last 3 Months Immunizations Immunization Administration Dates Next Due Influenza, High Dose Seasonal, Preservative Free 01/31/2025 Tdap 01/31/2025,10/05/2007 Social History Tobacco Use Types Packs/Day Years [...] Mass Index 27.63 01/31/2025 2:03 PM EST Plan of Treatment Upcoming Encounters Date Type Department Care Team (Late st Contact Info) Description 03/25/2025 9:15 AM EST Office Visit [facility] [address] [place] [address] Mariana Morgan MD [address] [place] [address] Health Maintenance Due Date Last Done Comments CT Colonography 1956 Colonoscopy 1956 Colorectal Cancer Screening 1956 FIT DNA/Cologuard 1956 FIT 1956 FOBT 1956 Lipid Panel 1956 Sigmoidoscopy 1956 Hepatitis C Screening 1974 Pneumococcal Vaccine: 50+ Years (1 of 2 - PCV) 1975 RSV Patients and Patients Aged 60 years or older (1 - Risk 50-74 years 1-dose series) 2006 Zoster Vaccines (1 of 2) 2006 COVID-19 Vaccine (5 - season) 2024 09/04/2021, 03/06/2021, 06/25/2020, Additional history exists Alcohol/Substance Use Screening 11/27/2025 11/27/2024 Depression Screening 11/27/2025 11/27/2024, 11/28/19 25 SDOH Screening 11/27/2025 11/27/2024 Tobacco Screening 01/31/2026 01/31/2025 DTaP/Tdap/Td Vaccines (3 - Td or Tdap) 01/31/2035 01/31/2025, 10/05/2007 Influenza Vaccine Completed 01/31/2025 HIB Vaccines Aged Out No longer eligi [...] 01/31/2025 3:35 PM EST Annual physical exam from Last 3 Months Results * CBC auto differential (01/31/2025 3:35 PM EST) White Blood Count 9.3 4.8 - 10.8 X10*3/uL [facility] Red Blood Count 4.81 4.60 - 5.80 X10*6/uL [facility] Hemoglobin 14.9 14.0 - 18.0 g/dl [facility] Hematocrit 45.2 42.0 - 52.0 % [facility] Mean Corpuscular Volume 94.0 80.0 - 98.0 fL [facility] Mean Corpuscular Hemoglobin 31.0 27.0 - 33.0 pg [facility] Mean Corpuscular HGB Conc 33.0 31.0 - 36.0 g/dl [facility] Red Cell Distribution Width 12.2 11.0 - 16.0 % [facility] Platelet Count 237 160 - 400 X10*3/uL [facility] Mean Platelet Volume 10.3 9.4 - 12.4 fL [facility] Neutrophils Percent Auto 60.7 45 - 73 % [facility] Imm Gran Pct Auto 0.3 0.0 - 0.4 % [facility] Lymphocytes Percent Auto 25.2 20 - 40 % [facility] Monocytes Percent Auto 10.9 2 - 11 % [facility] Eosinophils Percent Auto 1.9 0 - 4 % [facility] Basophils Percent Auto 1.0 0 - 2 % [facility] NRBC Pct Auto 0.0 0.0 - 0.2 /100WBC [facility] Neutrophils Absolute Auto 5.7 2.0 - 8.3 x10*3/uL [facility] Imm Gran Abs Auto 0.03 0.00 - 0.03 X10*3/uL [facility] Lymphocytes Absolute Auto 2.4 1.2 - 4.9 X10*3/uL [facility] Monocytes Absolute Auto 1.0 0.1 - 1.2 X10*3/uL [facility] Eosinophils Absolute Auto 0.2 0.0 - 0.4 X10*3/uL [facility] Basophils Absolute Auto 0.1 0.0 - 0.2 X10*3/uL [facility] NRBC Abs Auto 0.000 0.0 - 0.012 X10*3/uL [facility] Blood Venous blood specimen / Unknown 01/31/2025 3:35 PM EST 01/31/2025 5:39 PM EST Mariana Morgan MD LAB BLOOD ORDERABLES Final Result Performing Organization Address City/State/[facility] Co de Phone Number [facility] [address] [place] [address] [phone] from Last 3 Months [facility] [place] MEDICARE REPLACEMENT PPO # 1 [place] [id number] [place] [id number] Care Teams Stitching Machine Operator Relationship Specialty Start Date End Date Mariana Morgan MD [address] [place] [address] [place] [id number] PCP - General Internal Medicine 03/15/24
--- OUTSIDE RECORDS SUMMARY | 2025-01-31 18:33 | XMS_ITS | Continuity of Care Document ---
Author Organization [place] - [facility], [facility] Address [address] [place] [address] Care Team Providers Care Stay Cutter Name Role Phone MARILYN URBAN Primary Care Provider Assessment Encounter Date Assessment Date Assessment LastModified by Organization Details LastModified Time 01/04/2025 01/04/2025 Inderjit White is a 69-year-old male with significant allergies and asthma. The patient has demonstrated high sensitivity to multiple allergens, including aspen trees, Kyrgyz plantain, cats, grasses, weeds, and trees, with the exception of cockroach. Allergy testing revealed elevated sensitivity levels, with scores of seven for aspen trees, Kyrgyz plantain, and cats, and multiple sixes for [...] will be reviewed during the next visit. bettye Not available 01/04/2025 09:03:01 Plan of Treatment Reminders Order Date Submit Date Provider Last Modified By Organization Details Last Modified Time Details Appointments Allergy SLIT-new 2024 09:00A M [facility] Not available Not available Not available Lab ige, total, serum 2024 PAULDING [facility] (Centralized Electronic Ordering - All Locations), Patient Can Go To The Location Of Their Choice, [facility] 01/06/2025 17:15:55 CBC w/ auto diff 2024 PAULDING [facility] (Centralized Electronic Ordering - All Locations), Patient Can Go To The Location Of Their Choice, [facility] 01/06/2025 17:15:54 Referral None recorded. Procedures None recorded. Surgeries None recorded. Imaging None recorded. Medication Orders epinephri ne 0.3 mg/0.3 mL injection , auto-inje ctor 2024 [address] [id number], [address] [place] [address], [address], 01/04/2025 09:01:15 Patient TargetsNo targets recorded. Patient Instructions Encounter Date Encounter Id Patient Instructions Last Modified By Organization Details Last Modified Time 01/04/2025 [id number] sublingual immunotherapy regimen* - extra-dilution .3 REGI Not available 01/17/2025 04:13:39 - Increase Symbicort dosage to two puffs twice daily. - Begin allergy drops at home, starting with a low dose. - Return to the office for monitoring and review of blood test results. bettye Not available 01/04/2025 09:01:39 Please note: Parts of this encounter note have been generated by AI based on audio conversation. Patient consent was required prior to utilizing this technology. Content review was required prior to finalizing the note. bettye Not available 01/04/2025 09:01:39 Reason for Referral None Reported. Results Created Date Observation Date Name Description Value Unit Range Abnormal Flag Note LastModifiedBy Organization Detail LastModifiedTime 01/05/2001/04/2025 CBC WITH DIFFE RENTI AL/PL ATELE T WBC 6.6 x10e3 /uL 3.4-10 .8 normal Not Available [facility] ([facility]) [address] [facility], [place], [address], 01/06/2025 17:15:54 01/05/2001/04/2025 CBC WITH DIFFE RENTI AL/PL ATELE T RBC 4.87 x10e6 /uL 4.14-5 .80 normal Not Available [facility] ([facility]) [address] [place], [address], 01/06/2025 17:15:54 01/05/20 25 01/04/2025 CBC WITH DIFFE RENTI AL/PL ATELE T hemoglobin 15.7 g/dL 13.0-1 7.7 normal Not Available [facility] ([facility]) [address] [place], [address], 01/06/2025 17:15:54 01/05/20 25 01/04/2025 CBC WITH DIFFE RENTI AL/PL ATELE T hematocrit 46.1 % 37.5-5 1.0 normal Not Available [facility] ([facility]) [address] [place], [address], 01/06/2025 17:15:54 01/05/20 25 01/04/2025 CBC WITH DIFFE RENTI AL/PL ATELE T MCV 95 fL 79-97 normal Not Available [facility] ([facility]) [address] [place], [address], 01/06/2025 17:15:54 01/05/20 25 01/04/2025 CBC WITH DIFFE RENTI AL/PL ATELE T MCH 32.2 pg 26.6-3 3.0 normal Not Available [facility] ([facility]) [address] [facility], [place], [address], 01/06/2025 17:15:54 01/05/20 25 01/04/2025 CBC WITH DIFFE RENTI AL/PL ATELE T MCHC 34.1 g/dL 31.5-3 5.7 normal Not Available [facility] ([facility]) [address] [facility], [place], [address], 01/06/2025 17:15:54 01/05/20 25 01/04/2025 CBC WITH DIFFE RENTI AL/PL ATELE T RDW 12.3 % 11.6-1 5.4 Not Available [facility] ([facility]) [address] [facility], [place], [address], 01/06/2025 17:15:54 01/05/20 25 01/04/2025 CBC WITH DIFFE RENTI AL/PL ATELE T platelets 242 x10e3 /uL 150-45 0 normal Not Available [facility] ([facility]) [address] [place], [address], 01/06/2025 17:15:54 01/05/20 25 01/04/2025 CBC WITH DIFFE RENTI AL/PL ATELE T neutrophils 53 % not estab. normal Not Available [facility] ([facility]) [address] [facility], [place], [address], 01/06/2025 17:15:54 01/05/20 25 01/04/2025 CBC WITH DIFFE RENTI AL/PL ATELE T lymphs 29 % not estab. normal Not Available [facility] ([facility]) [address] [place], [address], 01/06/2025 17:15:54 01/05/20 25 01/04/2025 CBC WITH DIFFE RENTI AL/PL ATELE T monocytes 13 % not estab. normal Not Available [facility] ([facility]) [address] [facility], [place], [address], 01/06/2025 17:15:54 01/05/20 25 01/04/2025 CBC WITH DIFFE RENTI AL/PL ATELE T eos 4 % not estab. normal Not Available [facility] ([facility]) [address] [facility], [place], [address], 01/06/2025 17:15:54 01/05/20 25 01/04/2025 CBC WITH DIFFE RENTI AL/PL ATELE T basos 1 % not estab. normal Not Available [facility] ([facility]) [address] [facility], [place], [address], 01/06/2025 17:15:54 01/05/20 25 01/04/2025 CBC WITH DIFFE RENTI AL/PL ATELE T immature cells COUNTERINTELLIGENCE/HUMINT SPECIALIST Not Available [facility] ([facility]) [address] [facility], [place], [address], 01/06/2025 17:15:54 01/05/20 25 01/04/2025 CBC WITH DIFFE RENTI AL/PL ATELE T neutrophils (absolute) 3.5 x10e3 /uL 1.4-7. 0 normal Not Available [facility] ([facility]) [address] [place], [address], 01/06/2025 17:15:54 01/05/20 25 01/04/2025 CBC WITH DIFFE RENTI AL/PL ATELE T lymphs (absolute) 1.9 x10e3 /uL 0.7-3. 1 normal Not Available [facility] ([facility]) [address] [place], [address], 01/06/2025 17:15:54 01/05/20 25 01/04/2025 CBC WITH DIFFE RENTI AL/PL ATELE T monocytes(ab solute) 0.9 x10e3 /uL 0.1-0. 9 normal Not Available [facility] ([facility]) [address] [facility], [place], [address], 01/06/2025 17:15:54 01/05/20 25 01/04/2025 CBC WITH DIFFE RENTI AL/PL ATELE T eos (absolute) 0.3 x10e3 /uL 0.0-0. 4 normal Not Available [facility] ([facility]) [address] [facility], [place], [address], 01/06/2025 17:15:54 01/05/20 25 01/04/2025 CBC WITH DIFFE RENTI AL/PL ATELE T baso (absolute) 0.1 x10e3 /uL 0.0-0. 2 normal Not Available [facility] ([facility]) [address] [facility], [place], [address], 01/06/2025 17:15:54 01/05/20 25 01/04/2025 CBC WITH DIFFE RENTI AL/PL ATELE T immature granulocytes 0 % not estab. Not Available [facility] ([facility]) [address] [facility], [place], [address], 01/06/2025 17:15:54 01/05/20 25 01/04/2025 CBC WITH DIFFE RENTI AL/PL ATELE T immature grans (abs) 0.0 x10e3 /uL 0.0-0. 1 Not Available [facility] ([facility]) [address] [place], [address], 01/06/2025 17:15:54 01/05/20 25 01/04/2025 CBC WITH DIFFE RENTI AL/PL ATELE T NRBC COUNTERINTELLIGENCE/HUMINT SPECIALIST Not Available [facility] ([facility]) [address] [facility], [place], [address], 01/06/2025 17:15:54 01/05/20 25 01/04/2025 CBC WITH DIFFE RENTI AL/PL ATELE T hematology comments: COUNTERINTELLIGENCE/HUMINT SPECIALIST Not Available [facility] ([facility]) [address] [facility], [place], [address], 01/06/2025 17:15:54 01/05/20 25 01/06/2025 IMMUN OGLOB ULIN E, TOTAL immunoglobul in E, total 95 IU/mL 6-495 Not Available [facility] ([facility]) [address] [facility], [place], [address], 01/06/2025 17:15:55 12/08/19 sienna metry testi ng* No observ ation record ed. [email or web address] Not Available 2024 12:07:30 Result Notes None recorded. Problems Name Problem SNOMED Code Status Onset Date Resolution Date Notes Provider Name and Address Organization Details Recorded Time Acute exacerbatio n of intermitten t allergic asthma Active 2024 STEVE ALCANTARA MD [address] [address], [place], [address], [facility] - [facility] [place] 14:03:04 Chronic sinusitis 23853035 Active 2024 STEVE ALCANTARA MD [address] [address], [place], [address], [facility] - [facility] [place] 14:03:18 Deviated nasal septum 066276259 Active 2024 STEVE ALCANTARA MD [address] [address], [place], [address], [facility] - [facility] [place] 14:03:25 Mild persistent allergic asthma 6313581676811 9106 Active 2024 STEVE ALCANTARA MD [address] [address], [place], [address], [facility] - [facility] [place] 5 13:50:50 Perennial allergic rhinitis 362996702 Active 2024 Noé Gamboa [address] [address], [place], [address], [facility] - [facility] [place] 5 09:09:32 Polyp of nasal cavity 872304689 Active 2024 STEVE ALCANTARA MD [address] [address], [place], [address], [facility] - [facility] [place] 08:59:55 Polypoid sinus degeneratio n 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 Procedures Surgical History Date Name Laterality Status Provider Name and Address Organization Details Recorded Time Allergy Testing-Full completed [address], [address], [facility] 12/10/2024 11:31:34 5 Allergy Testing-Full completed [address], [address], [facility] [place] 12/07/2024 09:46:24 JMSNasal/Sinus Endoscopy completed STEVE RIDDLE MD [address] [place] [address], [address], [facility] [place] 10/17/2024 14:05:04 Imaging Results None recorded. Procedure Notes None recorded. Medical Equipment None Reported. Allergies Allergen ID Allergen Name Allergen Category Reaction Reaction Severity Criticality Documentation Date Start Date Code Code System Note Provider Name and Address Organization Details Recorded Time 233076 weed pollen environme nt,medica tion wheezing moderate Not available 01/04/20252024 Shweta pan [place] - [facility] 5 08:41:14 371836 grass pollen environme nt,medica tion eye redness severe Not available 01/04/20252024 Shweta pan [facility] [place] 5 08:41:14 901901 tree and shrub pollen environme nt,medica tion itching moderate Not available 01/04/20252024 Shweta pan [place] - [facility] 5 08:41:14 172400 house dust mite environme nt cough moderate Not available 01/04/20252024 Shweta pan [place] - [facility] 5 08:41:14 364712 mold extract environme nt wheezing moderate Not available 01/04/20252024 76544 8 RxNorm Shweta pan [place] - [facility] 5 08:41:14 Medications Name Sig Start [...] Available Vitals Date Recorded Body height Body weight Systolic And Diastolic Provider Name and Address Organization Details Last Updated DateTime 01/04/2025 167.64 cm 40535.89 g 132/84 mm[Hg] Shweta Sung [place] - [facility] 01/04/2025 08:51:02 Social History Question Answer Notes LastModified by Organizat ion Details LastModified Time Tobacco Smoking Status Former Smoker STEVE RIDDLE MD [address] [place] [address], [place], [address], [facility] - [facility] 11/13/2024 13:51:51 What Type Of Calf Skinner Do You Use? None Information not available [...] noise exposure are you exposed to? noExposureToExcessiveNoise [email or web address] Infor mation not available 01/04/2025 Mental Status None recorded. Family History Nothing Reported. Medical History Condition Response Allergies/Hayfever Y Heart Problems N Anxiety N Tonsil Infections N Emphysema N Migraines N Thyroid Problems N COPD N Depression N Developmental Delay N Glaucoma N Nasal or Sinus Problems Y Anemia Y Immune System Disorder N Anesthesia Complications N Heart Attack (ME) N Other Skin Condition Y Diabetes N [...] ICD10 Code Diagnosis IMO Codes Diagnosis Note 56344 Noé Cooper Allergy [address] [facility] [address] [place] [address] 12/07/2024 08:57:33 12/07/2024 09:47:54 Perennial allergic rhinitis 275794637 J30.89 424905 16498 Noé Cooper Allergy [address] [place] [address] it[address] [place] [address] 12/10/2024 10:27:07 12/10/2024 11:33:23 Perennial allergic rhinitis 109943621 J30.89 198579 71974 STEVE HAWKINS MD [facility] [place] 100 [facility] [place] [address] 01/04/2025 08:17:01 01/04/2025 09:03:35 Perennial allergic rhinitis 707563899 J30.89 585272 We reviewed testing results and medical management [...] use discussed Mild persi stent allergic asthma 6742330175 5839199 J45.30 50889581 Deviated nasal septum 12 2713487 J34.2 400596 Health Concerns Section Related Observation LastModified by Organization Detai ls LastModified Time None Recorded Concern Status LastModified by Organization Details LastModified Time None Recorded Payers Encounter Date Sequence Insurance Name Policy Number Policy Sanchez Covered Member ID Sanchez Member ID Guarantor Name 01/04/[address] [facility]: MEDICARE PPO BLUE (MEDICARE REPLACEMENT PPO) [id number] George White [id number] George White 01/04/2025 1 JULIANN [id number] George White [id number] George White Notes Date Note Type Note Provider Name and Address Organization Details Recorded Time 01/04/2025 text/html Inderjit White is a 69-year-old male who presents for evaluation and management of allergies and asthma. He reports significant allergies to various substances, including aspen trees, Kyrgyz plantain, cats, grasses, weeds, and trees, with the exception of cockroach. Allergy testing revealed high sensitivity levels, with scores of seven for aspen trees, Kyrgyz plantain, and cats, and multiple sixes for [...] to his allergy symptoms. STEVE RIDDLE MD [address] [place] [address], [address], [facility] - [facility] 01/04/2025 09:03:18
--- OUTSIDE RECORDS SUMMARY | 2025-01-31 18:33 | XMS_ITS | Continuity of Care Document ---
Author Organization [place] - [facility], [facility] Address [address] [place] [address] Care Team Providers Care Chair Inspector And Leveler Name Role Phone RAJNIMARILYN Primary Care Provider Assessment Encounter Date Assessment Date Assessment LastModified by Organization Details LastModified Time 11/13/2024 11/13/2024 Asthma controlled with Symbicort. No recent need for albuterol. [...] Doximity visit with MD and Pt in [place] [email or web address] Not available 11/13/2024 13:51:28 Plan of Treatment Reminders Order Date Submit Date Provider Last Modified By Organization Details Last Modified Time Details Appointments Allergy SLIT-new 2024 09:00A M [facility] Not available Not available Not available Lab None recorded. Referral None recorded. Procedures spirometr y, including graphic record, total and timed vital capacity, expirator y flow rate measureme nt(s) (PROC) 2024 025 [email or web address] Not available 11/30/2024 08:39:07 allergy testing, skin prick (PROC) 2024 025 [email or web address] Not available 12/19/2024 09:23:12 intraderm al allergy skin testing (PROC) 2024 025 [email or web address] Not available 12/19/2024 09:23:13 pulse oximetry (PROC) 2024 025 [email or web address] Not available 12/19/2024 09:23:13 Surgeries None recorded. Imaging None recorded. Medication Orders None recorded. Patient TargetsNo targets recorded. Patient InstructionsNo instructions recorded. Reason for Referral None Reported. Results Created Date Observation Date Name Description Value Unit Range Abnormal Flag Note LastModifiedBy Organization Detail LastModifiedTime 12/08/19 25 sienna metry testi ng* No observ ation record ed. [email or web address] Not Available 2024 12:07:30 Result Notes None recorded. Problems Name Problem SNOMED Code Status Onset Date Resolution Date Notes Provider Name and Address Organization Details Recorded Time Acute exacerbatio n of intermitten t allergic asthma Active 2024 STEVE ALCANTARA MD [address] [facility], [place], [address], [facility] - [facility] [place] 5 14:03:04 Chronic sinusitis 95765317 Active 2024 STEVE ALCANTARA MD [address] [facility], [place], [address], [facility] - [facility] [place] 14:03:18 Deviated nasal septum 563684276 Active 2024 STEVE ALCANTARA MD [address] [facility], [place], [address], [facility] - [facility] [place] 14:03:25 Mild persistent allergic asthma 7147730748619 9106 Active 2024 STEVE ALCANTARA MD [address] [facility], [place], [address], [facility] - [facility] [place] 5 13:50:50 Perennial allergic rhinitis 572582032 Active 2024 Noé Gamboa [address] [facility], [place], [address], [facility] - [facility] [place] 5 09:09:32 Polyp of nasal cavity 251837401 Active 2024 STEVE ALCANTARA MD [address] [address], [place], [address], [facility] 08:59:55 Polypoid sinus degeneratio n 88124709 Active 2024 STEVE ALCANTARA MD [address] [address], [place], [address], [facility] [place] 08:59:55 Problem Notes None recorded. Procedures Surgical History Date Name Laterality Status Provider Name and Address Organization Details Recorded Time Allergy Testing-Full completed [address], [address], [facility] 12/10/2024 11:31:34 5 Allergy Testing-Full completed [address], [address], [facility] 12/07/2024 09:46:24 JMSNasal/Sinus Endoscopy completed STEVE RIDDLE MD [address] [place] [address], [address], [facility] 10/17/2024 14:05:04 Imaging Results None recorded. Procedure Notes None recorded. Medical Equipment None Reported. Allergies Allergen ID Allergen Name Allergen Category Reaction Reaction Severity Criticality Documentation Date Start Date Code Code System Note Provider Name and Address Organization Details Recorded Time 102698 weed pollen environme nt,medica tion wheezing moderate Not available 01/04/20252024 Shweta pan [facility] 5 08:41:14 808200 grass pollen environme nt,medica tion eye redness severe Not available 01/04/20252024 Shweta pan [facility] 5 08:41:14 148101 tree and shrub pollen environme nt,medica tion itching moderate Not available 01/04/20252024 Shweta pan [place] - [facility] 5 08:41:14 176735 house dust mite environme nt cough moderate Not available 01/04/20252024 Shweta pan [place] - [facility] 5 08:41:14 808374 mold extract environme nt wheezing moderate Not available 01/04/20252024 19315 8 RxNorm Shweta pan [place] - [facility] 5 08:41:14 Medications Name Sig Start Date [...] Available Not Available No t Available Vitals None Recorded Social History Question Answer Notes LastModified by Organizat ion Details LastModified Time Tobacco Smoking Status Former Smoker STEVE RIDDLE MD [address] [place] [address], [address], [facility] - [facility] 11/13/2024 13:51:51 What Type Of Hook Up Driver Do You Use? None Information not available [...] noise exposure are you exposed to? noExposureToExcessiveNoise [email or web address] Infor mation not available 01/04/2025 Mental Status [...] ICD10 Code Diagnosis IMO Codes Diagnosis Note 33960 STEVE HAWKINS MD [facility] [address] [address] 10/17/2024 13:10:05 10/17/2024 14:14:48 Acute exacerbation of intermittent allergic asthma 2755025862 5297534 J45.21 35240166 Chronic sinusitis 803914 00 J32.8 93305 Deviated nasal septum 12 6408388 J34.2 501064 35755 STEVE HAWKINS MD [facility] [address] [address] 11/13/2024 13:46:24 11/13/2024 15:44:17 Deviated nasal septum 765465689 J34.2 893660 Chronic sinusitis 263596 00 J32.8 99395 Mild persi stent allergic asthma 5069548508 2922773 J45.30 62872459 Health Concerns Section Related Observation LastModified by Organization Detai ls LastModified Time None Recorded Concern Status LastModified by Organization Details LastModified Time None Recorded Payers Encounter Date Sequence Insurance Name Policy Number Policy Sanchez Covered Member ID Sanchez Member ID Guarantor Name 11/13/2024 2 [facility]: MEDIC[facility] PPO BLUE (MEDICARE REPLACEMENT PPO) [id number] George White [id number] George White 11/13/2024 1 [id number] George White [id number] George White Notes Date Note Type Note Provider Name and Address Organization Details Recorded Time 11/13/2024 text/html Feels generally much better. Notes significant improvement with doxycycline and symbicort 1 puff BID. No need for albuterol Cough improved. Interested in allergy testing STEVE RIDDLE MD [address] [place] [address], [place], [address], [facility] - [facility] 11/13/2024 13:51:58
--- OUTSIDE RECORDS SUMMARY | 2025-01-31 18:33 | XMS_ITS | Continuity of Care Document ---
Author Organization [place] - [facility], Allergy Address [address] [address] Care Team Providers Care Instructor Warper Name Role Phone MARILYN URBAN Primary Care [...] recorded . Patient TargetsNo targets recorded. Patient InstructionsNo instructions recorded. Reason for Referral None Reported. Results Created Date Observation Date Name Description Value Unit Range Abnormal Flag Note LastModifiedBy Organization Detail LastModifiedTime 12/08/19 25 sienna metry testi ng* No observ ation record ed. [email or web address] Not Available 2024 12:07:30 Result Notes None recorded. Problems Name Problem SNOMED Code Status Onset Date Resolution Date Notes Provider Name and Address Organization Details Recorded Time Acute exacerbatio n of intermitten t allergic asthma Active 2024 STEVE ALCANTARA MD [address] [address], [place], [address], [facility] 5 14:03:04 Chronic sinusitis 75156312 Active 2024 STEVE ALCANTARA MD 100 [facility] 100, [place], [address], [facility] 5 14:03:18 Deviated nasal septum 728959460 Active 2024 STEVE ALCANTARA MD [address] [address], [place], [address], [facility] [place] 5 14:03:25 Mild persistent allergic asthma 8654054365653 9106 Active 2024 STEVE ALCANTARA MD [address] [address], [place], [address], [facility] - [facility] [place] 5 13:50:50 Perennial allergic rhinitis 095638775 Active 2024 Noé Gamboa [address] [place] [address], [place], [address], [facility] - [facility] 5 09:09:32 Polyp of nasal cavity 255239808 Active 2024 STEVE ALCANTARA MD [address] [address], [place], [address], [facility] [place] 5 08:59:55 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 Procedures Surgical History Date Name Laterality Status Provider Name and Address Organization Details Recorded Time 5 Allergy Testing-Full completed Noé Gamboa [address] [place] [address],[address], [address], [facility] - [facility] 12/10/2024 11:31:34 5 Allergy Testing-Full completed Noé Gamboa [address] [place] [address],[address], [address], [facility] - [facility] 12/07/2024 09:46:24 5 JMSNasal/Sinus Endoscopy completed STEVE RIDDLE MD 100 [facility],[address], [address], [facility] - [facility] 10/17/2024 14:05:04 Imaging Results None recorded. Procedure Notes None recorded. Medical Equipment None Reported. Allergies Allergen ID Allergen Name Allergen Category Reaction Reaction Severity Criticality Documentation Date Start Date Code Code System Note Provider Name and Address Organization Details Recorded Time 722770 weed pollen environme nt,medica tion wheezing moderate Not available 01/04/20252024 Shweta pan [facility] 08:41:14 009244 grass pollen environme nt,medica tion eye redness severe Not available 01/04/20252024 Shweta pan [facility] 5 08:41:14 393431 tree and shrub pollen environme nt,medica tion itching moderate Not available 01/04/20252024 Shweta pan [facility] 08:41:14 837097 house dust mite environme nt cough moderate Not available 01/04/20252024 Shweta pan [facility] 5 08:41:14 464316 mold extract environme nt wheezing moderate Not available 01/04/20252024 71129 8 RxNorm Shweta pan [facility] 08:41:14 Medications Name Sig Start Date Stop [...] Available No t Available Vitals Date Recorded Oxygen saturation Oxygen saturation in Arterial blood by Pulse oximetry Heart rate Systolic And Diastolic Provider Name and Address Organization Details Last Updated DateTime 12/10/2024 99 % 99 % 93 /min 145/83 mm[Hg] AUDREY RENAE RN 100 [facility],[address], [address] , [facility] 11:19:41 Date Recorded Body height Body mass index (BMI) Body weight Provider Name and Address Organization Details Last Updated DateTime 12/10/2024 167.64 cm 27.8 kg/m2 79916.89 g Noéfidel Reddos 100 [facility],[address] [address], [place], [address], [facility] 12/10/2024 10:37:49 Date Recorded Body height Body weight Systolic And Diastolic Provider Name and Address Organization Details Last Updated DateTime 01/04/2025 167.64 cm 28951.89 g 132/84 mm[Hg] Shweta Sung [facility] 01/04/2025 08:51:02 Social History Question Answer Notes LastModified by Organizat ion Details LastModified Time Tobacco Smoking Status Former Smoker STEVE RIDDLE MD [address] [address], [place], [address], [facility] 11/13/2024 13:51:51 What Type Of Community Health Counselor Do You Use? None Information not available [...] use any illicit or recreational drugs? No [email or web address] Information not available 11/13/2024 Do you or have you ever used any other forms of tobacco or nicotine? No Information not available 11/13/2024 What type of noise exposure are you exposed to? noExposureToExcessiveNoise [email or web address] Infor mation not available 01/04/2025 Mental Status None recorded. Family History Nothing Reported. Medical History Condition Response Allergies/Hayfever Y Heart Problems N Anxiety N Tonsil Infections N Emphysema N Migraines N Thyroid Problems N Depression N COPD N Developmental Delay N Glaucoma N Nasal or Sinus Problems Y Anemia Y Immune System Disorder N Anesthesia Complications N Heart Attack (SD) N Other Skin Condition Y Diabetes N [...] ICD10 Code Diagnosis IMO Codes Diagnosis Note 71096 STEVE HAWKINS MD [facility] [address] [address] 11/13/2024 13:46:24 11/13/2024 15:44:17 Deviated nasal septum 711733203 J34.2 809095 Chronic sinusitis 323335 00 J32.8 03645 Mild persi stent allergic asthma 2732767696 4741246 J45.30 25354476 70494 [facility] [address] [place] [address] 12/07/2024 08:57:33 12/07/2024 09:47:54 Perennial allergic rhinitis 379104421 J30.89 920401 21242 [facility] [address] [place] [address] 12/10/2024 10:27:07 12/10/2024 11:33:23 Perennial allergic rhinitis 860234555 J30.89 931348 Health Concerns Section Related Observation LastModified by Organization Detai ls LastModified Time None Recorded Concern Status LastModified by Organization Details LastModified Time None Recorded Payers Encounter Date Sequence Insurance Name Policy Number Policy Sanchez Covered Member ID Sanchez Member ID Guarantor Name 12/10/2024 2 [facility] BLUE (MEDICARE REPLACEMENT PPO) [id number] George White [id number] George White 12/10/2024 1 [employer] [id number] George White [id number] Goerge White Notes Date Note Type Note Provider Name and Address Organization Details Recorded Time 01/04/2025 text/html Inderjit White is a 69-year-old male who presents for evaluation and management of allergies and asthma. He reports significant allergies to various substances, including aspen trees, Australian plantain, cats, grasses, weeds, and trees, with the exception of cockroach. Allergy testing revealed high sensitivity levels, with scores of seven for aspen trees, Australian plantain, and cats, and multiple sixes for [...] to his allergy symptoms. STEVE RIDDLE MD [address] [place] [address], [address], [facility] - [facility] 01/04/2025 09:03:18
--- OUTSIDE RECORDS SUMMARY | 2025-01-31 18:33 | XMS_ITS | Encounter Summary ---
Author Organization [employer] [facility] Address [address] [place] [address] Care Team Providers Care Inside Outside Sales Representative Name Role Phone Mariana Morgan MD Primary Care Provider [phone] Mariana Morgan MD Primary Care Provider [phone] Encounter Details Date Type Department Care Team (Late Contact Info) Description 11/24/2022 Orders Only [facility] [address] [place] [address] Love Vivas LPN Social History Tobacco Use [...] Description 03/25/2025 9:15 AM EST Office Visit [facility] [address] [place] [address] Mariana Morgan MD [address] [place] [address] documented as of this encounter Visit Diagnoses Not on filedocumented in this encounter Care Teams Inside Outside Sales Representative Relationship Specialty Start Date End Date Mariana Morgan MD [address] [place] [address] PCP - General Internal Medicine 08/08/17 04/10/23 Mariana Morgan MD [address] [place] [address] PCP - General Internal Medicine 03/15/24 documented as of this encounter
[2025-01-31 18:38] LABS: Alanine Aminotransferase 31 U/L (0-40); Albumin Level 4.8 g/dL (3.5-5.0); Alkaline Phosphatase 63 U/L (39-117); Anion Gap 13 (12-20); Aspartate Amino Transferase 36 U/L (5-37); Blood Urea Nitrogen 14 mg/dL (9-16); Calcium 9.5 mg/dL (8.4-10.2); Carbon Dioxide 29 mmol/L (22-29); Chloride 104 mmol/L (96-108); Cholesterol 204 mg/dL (<200); Estimated Glomerular Filt Rate > 60; HDL Cholesterol 74 mg/dL (>40); Potassium 4.2 mmol/L (3.3-5.1); Sodium 142 mmol/L (135-145); Total Protein 7.4 g/dL (6.5-8.0); Triglycerides 81 mg/dL (<150)
[2025-02-01 04:12] LABS: ~HepC Num1 0.05 S/CO (0.00-0.79); ~Hepatitis C Antibody Nonreactive (Nonreactive)
[2025-02-07 15:39] LABS: Testosterone, Free 41.1 pg/mL (35.0-155.0)
== END 2025-01-31 15:34 | disposition home or self-care (01) ==
LOC: HO.CHCLDS 15:33
PROVIDERS: Visit Provider Internal Medicine
DX: Z00.00 Encounter for general adult medical examination without abnormal findings (principal); Z13.6 Encounter for screening for cardiovascular disorders; Z13.29 Encounter for screening for other suspected endocrine disorder; Z11.59 Encounter for screening for other viral diseases; R68.82 Decreased libido
CPT/HCPCS: 36415; 80053; 80061; 84402; 84403; 84443; 85025; 86803

== ENCOUNTER 2025-02-05 08:47 | Outpatient (REF) | payer OTHER, MEDICARE, SELFPAY ==
[2025-02-10 11:14] LABS: Testosterone, Free 88.9 pg/mL (35.0-155.0)
== END 2025-02-05 08:48 | disposition home or self-care (01) ==
LOC: HO.CHCLDS 08:47
PROVIDERS: PCP Internal Medicine; Visit Provider Internal Medicine
DX: R68.82 Decreased libido (principal)
CPT/HCPCS: 36415; 84402; 84403